=== PATIENT | female | born 1985 | race Caucasian/White ===

== ENCOUNTER 2019-10-26 08:55 | Emergency (ER) | payer OTHER, SELFPAY ==
[2019-10-26 09:05] VITALS: BP 110/68; PULSE 98; RESP 16; TEMP 36.4; O2SAT 97
--- NOTE | 2019-10-26 09:26 | ED.URI ---
HPI - URI/Sore Throat General Chief Complaint: Upper Respiratory Infection Stated Complaint: Sore Throat Time Seen by Provider: 10/26/19 09:26 Source: patient and RN notes reviewed Mode of arrival: ambulatory Limitations: no limitations History of Present Illness HPI Narrative: 34-year-old female presents with concern for sore throat, ear pain, nasal congestion, rhinorrhea, body aches, chills that started on . Reports she is been taking Tylenol Motrin with little relief. MD elicited complaint: sore throat Related Data Allergies Allergy/AdvReac Type Severity Reaction Status Date / Time loratadine Allergy Unknown Verified 01/24/18 18:53 Penicillins Allergy Unknown Verified 01/24/18 18:53 pseudoephedrine Allergy Unknown Verified 01/24/18 18:53 Cat Dander Allergy Unknown Uncoded 01/24/18 18:53 Review of Systems Review of Systems: Narrative: CONSTITUTIONAL: Reports malaise, chills, sweats. EYES: Denies visual changes, redness, or discharge. ENT: Reports rhinorrhea, congestion, otalgia and sore throat. Denies sinus pain CARDIOVASCULAR: Denies chest pain, palpitations, or edema. RESPIRATORY: Reports occasional cough. Denies dyspnea. GASTROINTESTINAL: Denies abdominal pain, nausea, vomiting, diarrhea SKIN: Denies rash or itching. MUSCULOSKELETAL: Reports myalgia. NEUROLOGIC: Reports headache. All systems reviewed & are unremarkable except as noted in HPI and below PMFSH Social History Social History Gender identity (if verbalized by the patient): Female Comments At time of signature, agree with nursing past medical, surgical, social and family history. There is no relevant family history pertinent to the presenting complaint Exam Narrative: Exam Narrative: GENERAL: Well-appearing, well-nourished, and in no acute distress. HEAD: Normocephalic EYES: PERRLA, conjunctivae clear ENT: Nares clear, turbinates edematous and erythematous, clear discharge. Mucous membranes moist. TM pearly gipson with dull light reflex bilaterally; no tragal tenderness. Oropharynx erythematous without lesions. Tonsils not enlarged and without exudate, no drooling, no hoarseness, no trismus. NECK: Supple. No lymphadenopathy CHEST: Clear to auscultation, breath sounds equal. No wheezing, rhonchi, rales, or stridor. No respiratory distress, speaks in full sentences. HEART: Regular rate and rhythm. No murmur heard. Normal peripheral pulses. SKIN: Warm, dry, no rash. NEURO: Alert and oriented x3. PSYCH: Normal mood and affect Course Course Emergency Course: Patient is aware of diagnosis, understands and agrees to treatment plan. Anticipatory guidance given. Patient agrees to follow-up as directed and is aware of reasons to seek care at the emergency department. Portions of this record may have been created with voice recognition software Vital Signs Vital signs: Vital Signs Temperature 97.5 F L 10/26/19 09:05 Pulse Rate 98 10/26/19 09:05 Respiratory Rate 16 10/26/19 09:05 Blood Pressure 110/68 10/26/19 09:05 Pulse Oximetry 97 10/26/19 09:05 Temperature 97.5 F L 10/26/19 09:05 Pulse Rate 98 10/26/19 09:05 Respiratory Rate 16 10/26/19 09:05 Blood Pressure 110/68 10/26/19 09:05 Pulse Oximetry 97 10/26/19 09:05 Reviewed. MDM - URI/Sore Throat MDM Narrative Medical decision making narrative: Differential diagnosis considered: Strep pharyngitis, allergic rhinitis, upper respiratory tract infection, sinusitis, rhinosinusitis, nasopharyngitis. viral pharyngitis, otitis media, otitis externa, pneumonia, bronchitis, viral cough syndrome, viral syndrome, and influenza. Exam findings show no acute concerns or changes; patient is non-toxic appearing and is in no distress. Patient is appropriate for outpatient treatment and follow-up. Lab Data Attestation: I reviewed the patient's lab results. Labs: Influenza A Screen Negative Reference Range: Negative Influenza B Screen Negative R
== END 2019-10-26 09:38 | disposition home or self-care (01) ==
PROVIDERS: Emergency Provider Nurse Practitioner
DX: J02.9 Acute pharyngitis, unspecified (principal); R09.81 Nasal congestion; J34.89 Other specified disorders of nose and nasal sinuses; R52 Pain, unspecified
CPT/HCPCS: 87081; 87804; 87880; 99213; G0463

== ENCOUNTER 2021-03-22 13:31 | Emergency (ER) | payer OTHER, SELFPAY ==
[2021-03-22 13:41] VITALS: BP 135/88; PULSE 102; RESP 20; TEMP 37.1
--- NOTE | 2021-03-22 14:55 | ED.URI ---
HPI - URI/Sore Throat General Chief Complaint: Upper Respiratory Infection Stated Complaint: Cough Source: patient and RN notes reviewed Mode of arrival: ambulatory History of Present Illness HPI Narrative: This is a 35-year-old female who presented to urgent care with complaints of uncontrolled nonproductive cough,fatigue, with shortness of breath. Patient did recently go to her primary care physician and was given a a Z-Angel. Patient noted that usually Z-Angel will resolve bronchitis. She did note that her bronchitis has not worsened it just has not resolved her symptoms. Patient also noted that she currently had a albuterol inhaler but no longer has 1 I will prescribe her a new 1 for her shortness of breath. the patient denies, CP, palpitation, extremity numbness, lightheadedness, dizziness, constipation, diarrhea, chills, or fever. I informed patient that if her symptoms did not resolve or improved she will need to go to get further testing to rule out things such as pneumonia. She has been vaccinated against Covid. Related Data Home Medications Medication Instructions Recorded Confirmed lisinopril-hydrochlorothiazide 1 tablet PO DAILY 10/26/19 03/22/21 Allergies Allergy/AdvReac Type Severity Reaction Status Date / Time loratadine Allergy Mild Hives Verified 03/22/21 14:30 Penicillins Allergy Mild Hives Verified 03/22/21 14:30 pseudoephedrine Allergy Mild Hives Verified 03/22/21 14:30 Cat Dander Allergy Mild Sneezing Uncoded 03/22/21 14:30 Review of Systems Review of Systems: Narrative: A 14 organ system Review of Systems was performed and pertinent positives included in the HPI, otherwise remaining ROS is negative. All systems reviewed & are unremarkable except as noted in HPI and below PMFSH Family History Family History (Updated 03/22/21 @ 15:03 by AMANDO Montano) Other Family history non-contributory Social History Social History Gender identity (if verbalized by the patient): Female Exam Narrative: Exam Narrative: GENERAL: This is a well-nourished, well-developed patient, in no apparent distress. HEAD: normocephalic, atraumatic. EYES: PERRL. Sclera clear/white. Vision is grossly intact. EARS: External ears normal, auditory canals clear and without drainage, TMs normal without perforation. Hearing grossly intact. NOSE: External nose normal with no obvious nasal discharge, nares without redness, no rhinorrhea. THROAT: Mucous membranes moist, posterior pharynx clear. NECK: Neck supple, non-tender without lymphadenopathy, masses or thyromegaly. CARDIOVASCULAR: Regular rate and rhythm without murmurs, gallops, or rubs. RESPIRATORY expiratory wheezing GASTROINTESTINAL: Abdomen soft, non-tender, nondistended. Bowel sounds are active. No hepato-splenomegaly, or palpable masses. No guarding. SKIN: warm, intact with no suspicious lesions or rash, good texture and turgor. NEURO: awake, alert, and oriented to person, place and time. There were no obvious focal neurologic abnormalities. Steady gait EXTREMITIES: Normal range of motion. No edema. No calf tenderness. Negative Homans sign bilaterally. BACK: Nontender without deformity or crepitance. No flank tenderness. Course Course Emergency Course: Patient will be given additional days of Z-Angel with prednisone albuterol and Tessalon Perles Vital Signs Vital signs: Vital Signs Temperature 98.7 F 03/22/21 13:41 Pulse Rate 102 H 03/22/21 13:41 Respiratory Rate 03/22/21 13:41 Blood Pressure 135/88 03/22/21 13:41 Temperature 98.7 F 03/22/21 13:41 Pulse Rate 102 H 03/22/21 13:41 Respiratory Rate 03/22/21 13:41 Blood Pressure 135/88 03/22/21 13:41 MDM - URI/Sore Throat Differential Diagnosis Differential diagnosis: Likely upper respiratory infection, bronchitis and pharyngitis Discharge Plan Discharge Clinical Impression: Bronchitis Patient Disposition: Home, Self-Care Condition: Stable Instructions: An
== END 2021-03-22 15:15 | disposition home or self-care (01) ==
PROVIDERS: Emergency Provider Nurse Practitioner; PCP Family Medicine
DX: J40 Bronchitis, not specified as acute or chronic (principal); I10 Essential (primary) hypertension
CPT/HCPCS: 99213; G0463

== ENCOUNTER 2021-05-31 08:16 | Outpatient (CLI) | payer OTHER, SELFPAY ==
--- NOTE | 2021-05-31 08:15 | ECG_ITS ---
Measurements Intervals [place] Rate: 97 P: 55 [place]: 123 QRS: 32 QRSD: 90 T: 28 QT: 354 QTc: 451 Interpretive Statements SINUS RHYTHM DELAYED PRECORDIAL R/S TRANSITION BASELINE ARTIFACT- I, III, AVL BORDERLINE ECG Electronically Signed On 05-31-2021 8:31:06 CDT by Melvin Pavon D.O.
[2021-05-31 09:29] LABS: Anion Gap 9 mmol/L (8-16); Blood Urea Nitrogen 14 mg/dL (7-17); Calcium 8.9 mg/dL (8.4-10.2); Carbon Dioxide 27 mmol/L (22-30); Chloride 103 mmol/L (98-107); Estimated Glomerular Filt Rate > 60; Glucose 122 mg/dL (65-110); Potassium 3.8 mmol/L (3.4-5.0); Sodium 139 mmol/L (137-145)
== END 2021-05-31 08:17 | disposition home or self-care (01) ==
LOC: ANHSURGERY 08:20
PROVIDERS: Anesthesiology; PCP Family Medicine; Visit Provider Obstetrics & Gynecology
DX: Z01.818 Encounter for other preprocedural examination (principal); Z51.81 Encounter for therapeutic drug level monitoring; Z79.899 Other long term (current) drug therapy; I10 Essential (primary) hypertension
CPT/HCPCS: 36415; 80048; 93005

== ENCOUNTER 2021-06-07 01:33 | Day surgery (SDC) | payer OTHER, SELFPAY ==
[2021-05-30 15:55] VITALS: BMI 43.2
--- NOTE | 2021-06-06 12:53 | P.PNAN_ITS ---
Anes - Initial Pre Proc Eval Procedure: Operation Date: 06/07/21 07:30 Proposed Procedures p Hysteroscopy with Biopsy of Endometrium, and Or Polypectomy and Laparoscopic Ovarian Cystectomy - Joseph Preciado MD Date/Time: 06/06/21 12:53 Surgeon: Joseph Preciado MD Pre Op Diagnosis: polyp of corpus uteri Patient Data Age: 35 Gender: F Height: 1.65 m Weight: 117.9 kg Allergies Allergy/AdvReac Type Severity Reaction Status Date / Time loratadine Allergy Mild Hives Verified 05/30/21 15:53 Penicillins Allergy Mild Hives Verified 05/30/21 15:53 pseudoephedrine Allergy Mild Hives Verified 05/30/21 15:53 Cat Dander Allergy Mild Sneezing Uncoded 05/30/21 15:53 Home Medications Medication Instructions Recorded Confirmed Type lisinopril-hydrochlorothiazide 1 tablet PO HS 10/26/19 05/30/21 History albuterol sulfate 2 inh INHALATION Q4-6H PRN #1 ea 03/22/21 05/30/21 Rx progesterone micronized 200 mg PO HS 05/30/21 05/30/21 History Patient hx anesthesia problems: none Family hx anesthesia problems: none Results Review: All pre-operative results and documents have been reviewed as part of the pre-operative evaluation. [facility] Past Medical History Medical History (Updated 06/06/21 @ 12:54 by Ferdinand Hernandez DO) Hypertension Family History Family History (Updated 03/22/21 @ 15:04 by GUNNAR Montano-C) Other Family history non-contributory Social History Social History Smoking packs per day: 0.5 Smoking cigarettes per day: 10.0 Years smoked: 13 Smoking pack-years: 6.50 Smoking status: Former smoker Tobacco type: cigarettes Smoking end date: 06/14/18 Alcohol intake: never Substance use: never Substance use type: does not use Living arrangements: with family Additional living arrangements comments: DAUGHTER Gender identity (if verbalized by the patient): Female Spiritual care concerns: No Anes - Eval Final PreProcedure Day of Procedure 06/06/21 12:53 Patient weight: morbidly obese Heart: regular rate and rhythm Lungs: clear to auscultation and normal air movement Airway: Mallampati scale class 1 Neurological: alert and oriented Last oral intake: >/= 8 hours ASA classification: III Emergent: no Anesthetic plan: proceed Anesthesia type and monitoring: general ETT and standard monitoring Results Review: All pre-operative results and documents have been reviewed as part of the pre-operative evaluation. Informed Consent: The patient's anesthetic plan and its attendant risks and benefits were discussed with the patient/family/POA. Questions were solicited and answers provided to the satisfaction of the patient/family/POA.
[2021-06-07] VITALS (13 sets, daily range): BP systolic 98–117; BP diastolic 58–75; PULSE 87–102; RESP 16–22; TEMP 36.3–36.8; O2SAT 92–99
[2021-06-07] MEDS: LACTATED RINGERS 1,000 ML 30 ML IV CONT ×2 (06:25→08:52)
[2021-06-07] MEDS: KETOROLAC 15 MG/ML VIAL (*BKC) IV PUSH (06:27)
[2021-06-07] MEDS: ACETAMINOPHEN 500 MG TABLET 1000 MG PO (06:27)
--- NOTE | 2021-06-07 07:14 | WPDHPUPDATE1 ---
History and Physical Update Update Date/Time: 06/07/21 07:14 History and Physical has been reviewed, including an updated exam of the patient. There are NO changes in the patient's condition. Risks, benefits, and alternatives have been discussed and questions answered. Patient agrees to proceed with procedure.
[2021-06-07] MEDS: fentaNYL CITRATE INJ (*CRX) 100 MCG/2 ML VIAL 25 MCG IV PUSH ×4 (09:01→09:34)
--- NOTE | 2021-06-07 09:09 | W.PM.PROC2 ---
Procedure Note - Detailed Date of Procedure 06/07/21 Pre-op Diagnosis polyp of corpus uteri, pelvic pain, ovarian cyst Post-op Diagnosis other (Pelvic pain, ovarian cyst, possible endometriosis) Procedure Performed Laparoscopic bilateral ovarian cystectomy with right salpingectomy, hysteroscopy D&C, Surgeon Joseph Preciado MD Anesthesia general Indications Pelvic pain Findings The right fallopian tube was stretched over a paratubal/ovarian cyst. It was deformed and damaged. A left ovarian hemorrhagic cyst was observed. The cysts on the right together measured about 7 cm. All appeared benign. The intrauterine cavity was normal. There may be endometriosis in the posterior cul-de-sac. Description of Procedure The patient was taken to the operating room. She was prepped and draped in the dorsal lithotomy position after induction general anesthesia. A 5 mm incision was made with a scalpel on the abdominal skin in the left upper quadrant of the abdomen. A 5 mm trocar was inserted into the intra-abdominal cavity under direct visualization the scope. In the same fashion a 5 mm left lower quadrant trocar was inserted and a 5 mm infraumbilical trocar was inserted. Bilateral ovarian cystectomy was performed. This was done with sharp and blunt dissection and using cautery. On the left side the cyst was removed from the parenchyma of the ovary. The right side was a pedunculated cyst off of the ovary that may be a paratubal cyst. It was closely associated with the fallopian tube and therefore the fallopian tube was removed. It was unsalvageable. It was stretched to family over the ovarian cyst. The right fallopian tube was removed. This was done with cautery and sharp dissection. It was removed from the infundibulopelvic ligament to the uterine cornua ovarian cysts and fallopian tube was taken out through the left lower quadrant trocar site. The pelvis was irrigated. The pneumoperitoneum was reduced. The trocars were removed. Skin was closed with subcuticular 4 micro. The patient's incisions were covered with Dermabond. A speculum was placed in the vagina. Cervix grasped with a tenaculum. The hysteroscope was inserted into the uterine cavity. Normal intrauterine cavity was observed. A medium curette was then used to curettage all the surfaces of the intrauterine cavity. These curettings were collected and sent to the pathology department. The procedure was terminated. She was taken recovery room in stable condition. Sponge lap and needle counts were correct x2. Estimated Blood Loss 25 Pathology yes Complications No immediate complications Condition stable Disposition same day
[2021-06-07] MEDS: oxyCODONE HCL (*CRX) 5 MG TAB IR PO (10:34)
[2021-06-07] MEDS: ALBUTEROL SULFATE NEB 2.5 MG/0.5 ML INH 5 MG INHALATION (11:00)
--- NOTE | 2021-06-07 11:09 | SUR.PHASEII ---
RESPIRATORY THERAPIST HERE FOR ALBUTEROL TREATMENT.
== END 2021-06-07 11:29 | disposition home or self-care (01) ==
PROVIDERS: PCP Family Medicine; Visit Provider Obstetrics & Gynecology
PROC: 0UDB8ZZ Extraction of Endometrium, Via Natural or Artificial Opening Endoscopic (ICD-10-PCS; CPT 58558; principal; 2021-06-07 07:30)
DX: N84.0 Polyp of corpus uteri (principal); N83.202 Unspecified ovarian cyst, left side; D27.0 Benign neoplasm of right ovary; N90.89 Other specified noninflammatory disorders of vulva and perineum; N73.6 Female pelvic peritoneal adhesions (postinfective); I10 Essential (primary) hypertension; Z79.51 Long term (current) use of inhaled steroids; Z87.891 Personal history of nicotine dependence; E66.01 Morbid (severe) obesity due to excess calories; Z68.41 Body mass index [BMI] 40.0-44.9, adult
CPT/HCPCS: 58661; 58558; 11200; 88302; 88305; 94640; A9270; J1885; J2250; J3010; J7030; J7120

== ENCOUNTER 2022-10-23 18:00 | Emergency (ER) | payer OTHER, SELFPAY ==
--- NOTE | ~2022-10-23 | XR_ITS ---
EXAMINATION: XR chest 2V DATE: 10/23/2022 18:44 INDICATION: Nonproductive cough. Chest tightness. TECHNIQUE: Frontal and lateral views of the chest were obtained. COMPARISON: Chest 2 views 01/24/2018 FINDINGS: A calcified right lung nodule and calcified right hilar lymph nodes are consistent with old granulomatous disease. No pleural effusion or pneumothorax. The heart size is normal. IMPRESSION: 1. No acute cardiopulmonary disease. Reviewed, dictated and finalized at location A. 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
[2022-10-23 18:25] VITALS: BP 114/70; PULSE 83; RESP 18; TEMP 36.6; O2SAT 99
--- NOTE | 2022-10-23 18:37 | ED.URI ---
HPI - URI/Sore Throat General Chief Complaint: Upper Respiratory Infection Stated Complaint: wheezing,cough Time Seen by Provider: 10/23/22 18:37 Source: patient and RN notes reviewed Mode of arrival: ambulatory Limitations: no limitations History of Present Illness HPI Narrative: 37 y/o female presented for c/o cough with associated chest tightness for 3 weeks. States she cannot take deep breaths or speak for any length of time without coughing. Cough is nonproductive. Symptoms worse at night. Denies recent illness, sob, wheezing, n/v/d/f/c. States she had similar sx as a child but has not required an inhaler for many years. Taking Mucinex occasionally for symptoms. MD elicited complaint: cough Related Data Home Medications Medication Instructions Recorded Confirmed lisinopril 20 1 tablet PO HS 10/26/19 10/23/22 mg-hydrochlorothiazide 25 mg tablet progesterone micronized 200 mg 200 mg PO HS 05/30/21 10/23/22 capsule Allergies Allergy/AdvReac Type Severity Reaction Status Date / Time loratadine AdvReac Mild Hives Verified 10/23/22 18:20 Penicillins AdvReac Mild Hives Verified 10/23/22 18:20 pseudoephedrine AdvReac Mild Hives Verified 10/23/22 18:20 Cat Dander AdvReac Mild Sneezing Uncoded 10/23/22 18:20 Review of Systems Review of Systems: CONSTITUTIONAL: Denies malaise, chills, sweats, fever EYES: Denies visual changes, redness, or discharge ENT: denies rhinorrhea, congestion, sinus pain, otalgia, sore throat CARDIOVASCULAR: Denies chest pain, palpitations, edema RESPIRATORY: Reports cough Denies dyspnea GASTROINTESTINAL: Denies abdominal pain, nausea, vomiting, diarrhea SKIN: Denies rash or itching MUSCULOSKELETAL: Denies myalgia NEUROLOGIC: Denies headache PMFSH Past Medical History Medical History Hypertension Family History Family History Other Family history non-contributory Social History Social History Smoking packs per day: 0.5 Smoking cigarettes per day: 10.0 Years smoked: 13 Smoking pack-years: 6.50 Smoking status: Former smoker Tobacco type: cigarettes Smoking end date: 06/14/18 Alcohol intake: never Substance use: never Substance use type: does not use Living arrangements: with family Additional living arrangements comments: DAUGHTER Gender identity (if verbalized by the patient): Female Spiritual care concerns: No Exam Narrative: GENERAL: mildly Ill-appearing, nontoxic EYES: PERRLA, conjunctivae clear ENT: Mucous membranes moist. TM pearly gipson with dull light reflex bilaterally; no tragal tenderness. Oropharynx normal; No tripod positioning, muffled voice, soft palate or pharyngeal wall bulging NECK: Supple. No lymphadenopathy CHEST: Clear to auscultation, breath sounds equal. No wheezing, rhonchi, rales, or stridor. Speaking and deep inspiration causes tight cough. No respiratory distress HEART: Regular rate and rhythm. No murmur heard. SKIN: Warm, dry, no rash. NEURO: Alert and oriented x3. PSYCH: Normal mood and affect Course Course Emergency Course: Patient is aware of diagnosis, understands and agrees to treatment plan. Anticipatory guidance given. Patient agrees to follow-up as directed and is aware of reasons to seek care at the emergency department. Portions of this record may have been created with voice recognition software Level of Care: Express Care Visit Vital Signs Vital signs: Vital Signs Temperature 97.8 F 10/23/22 18:25 Pulse Rate 83 10/23/22 18:25 Respiratory Rate 18 10/23/22 18:25 Blood Pressure 114/70 10/23/22 18:25 Pulse Oximetry 99 10/23/22 18:25 Oxygen Delivery Room Air 10/23/22 18:25 Temperature 97.8 F 10/23/22 18:25 Pulse Rate 83 10/23/22 18:25 Respiratory Rate 18 10/23/22 18:25 Blood Pressure 114/70 02/
== END 2022-10-23 19:01 | disposition home or self-care (01) ==
PROVIDERS: Emergency Provider Nurse Practitioner Family; PCP Family Medicine
DX: J40 Bronchitis, not specified as acute or chronic (principal); I10 Essential (primary) hypertension; Z87.891 Personal history of nicotine dependence
CPT/HCPCS: 71046; 99213; G0463

== ENCOUNTER 2022-12-12 08:33 | Emergency (ER) | payer OTHER, SELFPAY ==
[2022-12-12 08:44] VITALS: BP 102/56; PULSE 91; RESP 18; TEMP 36.6; O2SAT 97
--- NOTE | 2022-12-12 09:00 | ED.URI ---
HPI - URI/Sore Throat General Chief Complaint: Upper Respiratory Infection Stated Complaint: cough,sorthroat,congetion Time Seen by Provider: 12/12/22 09:00 Source: patient Mode of arrival: ambulatory Limitations: no limitations History of Present Illness HPI Narrative: 37-year-old female presents with complaint of cough, chest tightness, intermittent wheezing for the past 2 days. Reports that symptoms started after barbecue Grilling on Easter. patient reports that she has been having asthma like symptoms when she gets sick for the past several months. Thinks they are related to when she had COVID in 2019. Patient reports that she had asthma as a child but no problems since then. Has been using albuterol inhaler the last 2 days with little relief Of chest tightness. Has a tight , dry cough. afebrile. Speaking in full sentences. Ambulatory with steady gait. All systems reviewed and negative except as noted above. Related Data Home Medications Medication Instructions Recorded Confirmed lisinopril 20 1 tablet PO HS 10/26/19 12/12/22 mg-hydrochlorothiazide 25 mg tablet progesterone micronized 200 mg 200 mg PO HS 05/30/21 12/12/22 capsule Allergies Allergy/AdvReac Type Severity Reaction Status Date / Time loratadine AdvReac Mild Hives Verified 10/23/22 18:20 Penicillins AdvReac Mild Hives Verified 10/23/22 18:20 pseudoephedrine AdvReac Mild Hives Verified 10/23/22 18:20 Cat Dander AdvReac Mild Sneezing Uncoded 10/23/22 18:20 Review of Systems Review of Systems: CONSTITUTIONAL: Denies fever, chills, or sweats. EYES: Denies visual changes, redness, or discharge. ENT: Denies rhinorrhea, congestion, sore throat, or otalgia. CARDIOVASCULAR: Denies chest pain, palpitations, or edema. RESPIRATORY: Denies cough , chest tightness. Denies dyspnea. GASTROINTESTINAL: Denies abdominal pain, nausea, vomiting, or diarrhea. GENITOURINARY: Denies dysuria or hematuria. SKIN: Denies rash or itching. MUSCULOSKELETAL: Denies back pain, joint pain, or myalgia. NEUROLOGIC: Denies headache, numbness, or weakness. PSYCHIATRIC: Denies anxiety or depression. All other systems reviewed are negative, except as documented in HPI. [facility] Past Medical History Medical History Hypertension Family History Family History Other Family history non-contributory Social History Social History Smoking packs per day: 0.5 Smoking cigarettes per day: 10.0 Years smoked: 13 Smoking pack-years: 6.50 Smoking status: Former smoker Tobacco type: cigarettes Smoking end date: 06/14/18 Alcohol intake: never Substance use: never Substance use type: does not use Living arrangements: with family Additional living arrangements comments: DAUGHTER Gender identity (if verbalized by the patient): Female Spiritual care concerns: No Comments At time of signature, agree with nursing past medical, surgical, social and family history. There is no relevant family history pertinent to the presenting complaint. Exam Narrative: GENERAL: This is a well-nourished, well-developed patient, in no apparent distress. HEAD: normocephalic, atraumatic. EYES: PERRL. Sclera clear/white. Vision is grossly intact. EARS: External ears normal NOSE: External nose normal NECK: Neck supple, non-tender without lymphadenopathy, masses or thyromegaly. CARDIOVASCULAR: Regular rate and rhythm without murmurs, gallops, or rubs. RESPIRATORY: mildly decreased throughout all lung lara. No wheezes, rales, rhonchi. SKIN: warm, Dry, intact with no suspicious lesions or rash, good texture and turgor. NEURO: awake, alert, and oriented to person, place and time. There were no obvious focal neurologic abnormalities. EXTREMITIES: No joint tenderness, effusion, or edema noted. Course
[2022-12-12 09:21] VITALS: PULSE 96; RESP 22; O2SAT 95
[2022-12-12] MEDS: ALBUTEROL SULFATE NEB 2.5 MG/3 ML INH INHALATION (09:21)
[2022-12-12 09:35] VITALS: PULSE 95; RESP 20; O2SAT 98
== END 2022-12-12 09:45 | disposition home or self-care (01) ==
PROVIDERS: Emergency Provider Nurse Practitioner Family; PCP Family Medicine
DX: R05.9 Cough, unspecified (principal); F17.210 Nicotine dependence, cigarettes, uncomplicated; I10 Essential (primary) hypertension; Z86.16 Personal history of COVID-19
CPT/HCPCS: 99213; G0463

== ENCOUNTER 2022-12-19 16:57 | Emergency (ER) | payer OTHER, SELFPAY ==
--- NOTE | ~2022-12-19 | XR_ITS ---
EXAMINATION: XR chest 2V 12/19/2022 17:28 INDICATION: Nonproductive cough PROCEDURE: 2 view chest COMPARISON: Comparison to multiple prior studies sequentially, with oldest reviewed study dated 01/24. FINDINGS: The lungs are clear. The cardiomediastinal silhouette is within normal limits. There are no pleural effusions. There is no pneumothorax suspected. There is a calcified granuloma in the rig ht lung base. IMPRESSION: 1: NO ACUTE CARDIOPULMONARY DISEASE. Reviewed, dictated and finalized at location A.
[2022-12-19 17:07] VITALS: BP 117/69; PULSE 98; RESP 18; TEMP 36.7; O2SAT 98
--- NOTE | 2022-12-19 17:11 | ED.URI ---
HPI - URI/Sore Throat General Chief Complaint: Shortness of Breath/Dyspnea Stated Complaint: sob Time Seen by Provider: 12/19/22 17:11 Source: patient Mode of arrival: ambulatory Limitations: no limitations History of Present Illness HPI Narrative: 37-year-old female presents with complaint of shortness of breath, chest tightness, wheezing, coughing for the past several days. Patient was seen recently with the same complaints after using a BBQ grill. Took antibiotics, steroids, albuterol inhaler and felt better for a few days. States symptoms came back and now worse. Patient cannot speak a full sentence without coughing. Afebrile. States that she has been unable to get in with her primary care physician. Reports that she had asthma as a child but did not have issues with her breathing until after having COVID September 2021. All systems reviewed and negative except as noted above. Related Data Home Medications Medication Instructions Recorded Confirmed lisinopril 20 1 tablet PO HS 10/26/19 12/19/22 mg-hydrochlorothiazide 25 mg tablet progesterone micronized 200 mg 200 mg PO HS 05/30/21 12/19/22 capsule Allergies Allergy/AdvReac Type Severity Reaction Status Date / Time loratadine AdvReac Mild Hives Verified 12/19/22 17:12 Penicillins AdvReac Mild Hives Verified 12/19/22 17:12 pseudoephedrine AdvReac Mild Hives Verified 12/19/22 17:12 Cat Dander AdvReac Mild Sneezing Uncoded 12/19/22 17:12 Review of Systems Review of Systems: CONSTITUTIONAL: Denies fever, chills, or sweats. EYES: Denies visual changes, redness, or discharge. ENT: Denies rhinorrhea, congestion, sore throat, or otalgia. CARDIOVASCULAR: Denies chest pain, palpitations, or edema. RESPIRATORY: Reports cough and dyspnea. GASTROINTESTINAL: Denies abdominal pain, nausea, vomiting, or diarrhea. GENITOURINARY: Denies dysuria or hematuria. SKIN: Denies rash or itching. MUSCULOSKELETAL: Denies back pain, joint pain, or myalgia. NEUROLOGIC: Denies headache, numbness, or weakness. PSYCHIATRIC: Denies anxiety or depression. All other systems reviewed are negative, except as documented in HPI. [facility] Past Medical History Medical History Hypertension Family History Family History Other Family history non-contributory Social History Social History Smoking packs per day: 0.5 Smoking cigarettes per day: 10.0 Years smoked: 13 Smoking pack-years: 6.50 Smoking status: Former smoker Tobacco type: cigarettes Smoking end date: 06/14/18 Alcohol intake: never Substance use: never Substance use type: does not use Living arrangements: with family Additional living arrangements comments: DAUGHTER Gender identity (if verbalized by the patient): Female Spiritual care concerns: No Comments At time of signature, agree with nursing past medical, surgical, social and family history. There is no relevant family history pertinent to the presenting complaint. Exam Narrative: GENERAL: This is a well-nourished, well-developed patient, in no apparent distress. HEAD: normocephalic, atraumatic. EYES: PERRL. Sclera clear/white. Vision is grossly intact. EARS: External ears normal, auditory canals clear and without drainage, TMs normal without perforation. Hearing grossly intact. NOSE: External nose normal with no obvious nasal discharge, nares without redness, no rhinorrhea. THROAT: Mucous membranes moist, posterior pharynx clear. NECK: Neck supple, non-tender without lymphadenopathy, masses or thyromegaly. CARDIOVASCULAR: Regular rate and rhythm without murmurs, gallops, or rubs. RESPIRATORY: mild wheezing on expiration to upper lung lara, otherwise decreased. No wheezes, rales, or rhonchi. SKIN: warm, Dry, intact with no suspicious lesions or rash, good texture and tu
[2022-12-19] MEDS: IPRATROPIUM BR 0.02% INH SOLN 0.5 MG/2.5 ML VIAL INHALATION (17:40)
[2022-12-19] MEDS: ALBUTEROL SULFATE NEB 2.5 MG/3 ML INH INHALATION (17:41)
[2022-12-19] MEDS: predniSONE 20 MG TABLET 40 MG PO (17:46)
== END 2022-12-19 18:30 | disposition home or self-care (01) ==
PROVIDERS: Emergency Provider Nurse Practitioner Family; PCP Family Medicine
DX: J45.901 Unspecified asthma with (acute) exacerbation (principal); Z87.891 Personal history of nicotine dependence; I10 Essential (primary) hypertension; Z86.16 Personal history of COVID-19
CPT/HCPCS: 71046; 99213; A9270; G0463; J7512

== ENCOUNTER 2023-06-23 12:06 | Emergency (ER) | payer OTHER, SELFPAY ==
[2023-06-23 12:18] VITALS: BP 112/68; PULSE 87; RESP 16; TEMP 36.5; O2SAT 98
--- NOTE | 2023-06-23 12:39 | ED.URI ---
HPI - URI/Sore Throat General Chief Complaint: Upper Respiratory Infection Stated Complaint: Uncomfortable Feeling in Chest Area Time Seen by Provider: 06/23/23 12:39 Source: patient Mode of arrival: ambulatory Limitations: no limitations History of Present Illness HPI Narrative: 38-year-old female presented for complaint of palpitations, onset yesterday. States she feels a frequent ?flip-flop sensation? with warmth in the chest and throat. She did not feel the palpitations throughout the night while sleeping. Denies chest pain, shortness of breath, dizziness, nausea, vomiting, lethargy, or diaphoresis. Denies new medications or recent illness. Endorses family history of cardiac disease. Related Data Home Medications Medication Instructions Recorded Confirmed lisinopril 20 1 tablet PO HS 10/26/19 06/23/23 mg-hydrochlorothiazide 25 mg tablet progesterone micronized 200 mg 200 mg PO HS 05/30/21 06/23/23 capsule Allergies Allergy/AdvReac Type Severity Reaction Status Date / Time loratadine AdvReac Mild Hives Verified 06/23/23 12:12 Penicillins AdvReac Mild Hives Verified 06/23/23 12:12 pseudoephedrine AdvReac Mild Hives Verified 06/23/23 12:12 Cat Dander AdvReac Mild Sneezing Uncoded 06/23/23 12:12 Review of Systems Review of Systems: CONSTITUTIONAL: Denies body aches, fever, chills, or sweats. EYES: Denies visual changes ENT: Denies rhinorrhea, congestion, sore throat, or otalgia. CARDIOVASCULAR: Reports palpitations denies chest pain or edema. RESPIRATORY: Denies cough or dyspnea. GASTROINTESTINAL: Denies abdominal pain, nausea, vomiting, or diarrhea. SKIN: Denies rash, itching, or wounds. MUSCULOSKELETAL: Denies back pain, joint pain, or myalgia. NEUROLOGIC: Denies headache, numbness, tingling, or weakness. PSYCH: Denies depression or anxiety. All systems reviewed & are unremarkable except as noted in HPI and below PMFSH Past Medical History Medical History Hypertension Family History Family History Other Family history non-contributory Social History Social History Smoking packs per day: 0.5 Smoking cigarettes per day: 10.0 Years smoked: 13 Smoking pack-years: 6.50 Smoking status: Former smoker Tobacco type: cigarettes Smoking end date: 06/14/18 Alcohol intake: never Substance use: never Substance use type: does not use Living arrangements: with family Additional living arrangements comments: DAUGHTER Gender identity (if verbalized by the patient): Female Spiritual care concerns: No Comments At time of signature, I have reviewed and agree with nursing past medical, surgical, social and family history unless otherwise noted. Please see nursing chart for further information. There is no relevant family history pertinent to the presenting complaint Exam Narrative: GENERAL: Well-appearing, and in no acute distress. HEAD: Normocephalic, atraumatic. EYES: EOMI. conjunctivae normal. ENT: Mucous membranes pink and moist. No rhinorrhea. CHEST: No respiratory distress. Clear to auscultation. HEART: Regular rate and rhythm, occasional irregular beat. No murmur appreciated. Normal peripheral pulses. ABDOMEN: Soft, nontender, nondistended, normal active bowel sounds. EXTREMITIES: Normal range of motion. No edema. SKIN: Warm, dry, no rash. Capillary refill normal. Normal skin turgor. NEURO: No focal deficits. Alert and oriented x3. Gait steady. Course Course Emergency Course: Patient is aware of diagnosis, understands and agrees to treatment plan. Anticipatory guidance given. Patient agrees to follow-up as directed and is aware of reasons to seek care at the emergency department. Portions of this record may have been created with voice recognition software Level of Care: Express Care
== END 2023-06-23 13:06 | disposition short-term general hospital (02) ==
LOC: EXPTROY 12:08
PROVIDERS: Emergency Provider Nurse Practitioner Family; PCP Family Medicine
DX: R00.2 Palpitations (principal); Z87.891 Personal history of nicotine dependence; I10 Essential (primary) hypertension
CPT/HCPCS: 93005; 99213; G0463

== ENCOUNTER 2023-06-23 13:20 | Emergency (ER) | payer OTHER, SELFPAY ==
--- NOTE | 2023-06-23 13:25 | ECG_ITS ---
Rate AL QRSd QT QTc P QRS T Severity 87 122 84 354 428 56 19 28 Borderline ECG SINUS RHYTHM LOW QRS VOLTAGE BORDERLINE ECG COMPARED TO ECG 05/31/2021 08:32:17 NO SIGNIFICANT CHANGES Electronically Signed On 06-24-2023 8:18:42 CDT by Cash Dumont M.D. [facility]
[2023-06-23 13:32] VITALS: BP 113/81; PULSE 86; RESP 12; TEMP 36.9; O2SAT 97
[2023-06-23 14:17] VITALS: BP 112/71; PULSE 88; RESP 20; O2SAT 98
[2023-06-23 14:18] LABS: Basophils Percent Auto 0.3 % (0.2-1.2); Eosinophils Absolute Auto 0.2 K/mm3 (0-0.3); Eosinophils Percent Auto 1.7 % (0-4.4); Hematocrit 41.2 % (37.0-47.0); Hemoglobin 13.3 g/dL (12.0-15.0); Immature Granulocyte Absolute 0.03 K/mm3 (0.00-0.031); Immature Granulocyte Percent A 0.3 % (0-0.5); Lymphocytes Percent Auto 24.6 % (18.3-44.2); Mean Corpuscular HGB Conc 32.3 g/dl (32-36); Mean Corpuscular Hemoglobin 28.1 pg (26-34); Mean Corpuscular Volume 86.9 fl (80-100); Mean Platelet Volume 9.4 fl (7.4-10.4); Monocytes Absolute Auto 0.7 K/mm3 (0.1-0.6); Monocytes Percent Auto 6.4 % (2.6-8.5); Neutrophils Absolute Auto 6.8 K/mm3 (1.3-6.7); Neutrophils Percent Auto 66.7 % (45.5-73.1); Platelet Count Result 306 k/mm3 (150-375); Red Blood Count 4.74 M/mm3 (4.2-5.4); Red Cell Distribution Width 13.3 % (11.5-14.5); White Blood Count 10.2 K/mm3 (4.5-10.0)
[2023-06-23 14:28] LABS: Anion Gap 4 mmol/L (8-16); Blood Urea Nitrogen 17 mg/dL (7-17); Carbon Dioxide 30 mmol/L (22-30); Chloride 102 mmol/L (98-107); Estimated CRCL calculation 89 ml/min; Estimated Glomerular Filt Rate > 60; Glucose 93 mg/dL (65-110); Magnesium 1.7 mg/dL (1.6-2.3); Potassium 3.6 mmol/L (3.4-5.0); Sodium 136 mmol/L (137-145)
[2023-06-23 14:40] LABS: Troponin I < 0.012 ng/mL (0.000-0.034)
--- NOTE | 2023-06-23 14:43 | ED.ARRPALP ---
HPI - Arrhythmia/Palpitations General Chief Complaint: Arrhythmia/Palpitations Stated Complaint: ekg changes Time Seen by Provider: 06/23/23 13:36 Source: patient Mode of arrival: ambulatory Limitations: no limitations History of Present Illness HPI narrative: This is a 38 year old female that presents to the ER for palpitations. Reports ongoing since yesterday. She was seen at Urgent care and sent here for further evaluation. Reports she feels like her heart is flip flopping. Denies chest pain, shortness of breath or lower extremity edema. Related Data Home Medications Medication Instructions Recorded Confirmed lisinopril 20 1 tablet PO HS 10/26/19 06/23/23 mg-hydrochlorothiazide 25 mg tablet progesterone micronized 200 mg 200 mg PO HS 05/30/21 06/23/23 capsule Allergies Allergy/AdvReac Type Severity Reaction Status Date / Time loratadine AdvReac Mild Hives Verified 06/23/23 13:37 Penicillins AdvReac Mild Hives Verified 06/23/23 13:37 pseudoephedrine AdvReac Mild Hives Verified 06/23/23 13:37 Cat Dander AdvReac Mild Sneezing Uncoded 06/23/23 13:37 Review of Systems Review of Systems: CONSTITUTIONAL: Denies fever CARDIOVASCULAR: Reports palpitations. Denies chest pain, or edema. RESPIRATORY: Denies dyspnea. All systems reviewed & are unremarkable except as noted in HPI and below PMFSH Past Medical History Medical History Hypertension Family History Family History Other Family history non-contributory Social History Social History Smoking packs per day: 0.5 Smoking cigarettes per day: 10.0 Years smoked: 13 Smoking pack-years: 6.50 Smoking status: Former smoker Tobacco type: cigarettes Smoking end date: 06/14/18 Alcohol intake: never Substance use: never Substance use type: does not use Living arrangements: with family Additional living arrangements comments: DAUGHTER Gender identity (if verbalized by the patient): Female Spiritual care concerns: No Exam Narrative: GENERAL: Well-appearing, well-nourished, and in no acute distress. HEAD: Normocephalic, atraumatic. EYES: EOMI. NECK: No JVD CHEST: Clear to auscultation. No respiratory distress. No wheezes rales or rhonchi HEART: Regular rate and rhythm. No murmur heard. Normal peripheral pulses. EXTREMITIES: Normal range of motion. No edema. SKIN: Warm, dry, no rash. NEURO: No focal deficits. Alert and oriented x3. PSYCH: Normal mood and affect Course Course Emergency Course: Patient was updated on workup and agrees with plan of care Vital Signs Vital signs: Vital Signs Temperature 98.4 F 06/23/23 13:32 Pulse Rate 86 06/23/23 13:32 Respiratory Rate 12 06/23/23 13:32 Blood Pressure 113/81 06/23/23 13:32 Pulse Oximetry 97 06/23/23 13:32 Oxygen Delivery Room Air 06/23/23 13:32 Temperature 98.4 F 06/23/23 13:32 Pulse Rate 88 06/23/23 14:17 Respiratory Rate 20 06/23/23 14:17 Blood Pressure 112/71 06/23/23 14:17 Pulse Oximetry 98 06/23/23 14:17 Oxygen Delivery Room Air 06/23/23 13:32 MDM - Arrhythmia/Palpitations MDM Narrative Medical decision making narrative: Patient presents to the emergency department for palpitations ongoing since yesterday. Her vitals are stable. She is in no acute distress. CBC and metabolic panel without concerning findings. Her baseline troponin is negative. No concerning findings on her EKG. It shows normal sinus rhythm. She does have occasional PVCs noted on [employer] attendant. Patient was updated on work-up. Instructed on things she can do to reduce the amount of PVCs. Instructed to have follow up with her PCP. She was given warnings to return to the ER Differential Diagnosis Differential diagnosis: Likely palpitations, anxiety, sinus tachycardia and ve
[2023-06-23 15:05] VITALS: BP 103/63; PULSE 87; RESP 16; O2SAT 98
--- NOTE | 2023-06-23 23:39 | ECG_ITS ---
Rate [place] QRSd QT QTc P QRS T Severity 75 184 159 449 503 96 268 61 Abnormal ECG SINUS RHYTHM MARKED RIGHT AXIS DEVIATION [QRS AXIS > 100] RIGHT BUNDLE BRANCH BLOCK [120+ ms QRS DURATION, UPRIGHT V1, 40+ ms S IN I/aVL/V4/V5/V6] ST DEPRESSION, CONSIDER GLOBAL ISCHEMIA ABNORMAL ECG Electronically Signed On 06-24-2023 8:28:19 CDT by Cash Dumont M.D. COMPARED TO ECG 06/23/2023 13:25:48 RIGHT BUNDLE-BRANCH BLOCK NOW PRESENT MTDD
== END 2023-06-23 15:08 | disposition home or self-care (01) ==
PROVIDERS: Emergency Provider Physician Assistant; PCP Family Medicine
DX: I49.3 Ventricular premature depolarization (principal); I10 Essential (primary) hypertension; Z87.891 Personal history of nicotine dependence; I45.10 Unspecified right bundle-branch block; R94.31 Abnormal electrocardiogram [ECG] [EKG]
CPT/HCPCS: 36415; 80048; 83735; 84484; 85025; 93005; 99284

== ENCOUNTER 2024-01-21 17:26 | Emergency (ER) | payer OTHER, SELFPAY ==
[2024-01-21 17:37] VITALS: BP 101/56; PULSE 88; RESP 24; TEMP 36.3; O2SAT 98
--- NOTE | 2024-01-21 17:53 | ED.URI ---
HPI - URI/Sore Throat General Chief Complaint: Upper Respiratory Infection Stated Complaint: respiratory infection Source: patient Mode of arrival: ambulatory Limitations: no limitations History of Present Illness HPI Narrative: 38-year-old female with a history of asthma presented for complaint of nonproductive cough and chest tightness over the past 3 days. Cough is worse at night, and endorses sob with exertion. She has been using her inhaler along with mucinex and Loyda for symptoms. She denies chest pain, palpitations, nausea, vomiting diarrhea fevers or chills. Scheduled with a new PCP. Related Data Home Medications Medication Instructions Recorded Confirmed lisinopril 20 1 tablet PO HS 10/26/19 06/23/23 mg-hydrochlorothiazide 25 mg tablet albuterol sulfate 90 mcg/actuation inhalation 01/21/24 aerosol inhaler fluticasone propionate 110 inhalation 01/21/24 mcg/actuation HFA aerosol inhaler levonorgestrel 21 mcg/24 hr (up to 1 device intrauterine ONCE 01/21/24 01/21/24 8 years) 52 mg intrauterine device (Mirena) Allergies Allergy/AdvReac Type Severity Reaction Status Date / Time loratadine Allergy Mild Hives Verified 01/21/24 17:51 pseudoephedrine Allergy Mild Hives Verified 01/21/24 17:51 Penicillins AdvReac Mild Hives Verified 01/21/24 17:51 Cat Dander AdvReac Mild Sneezing Uncoded 01/21/24 17:51 Review of Systems Review of Systems: CONSTITUTIONAL: Denies body aches, fever, chills, or sweats. EYES: Denies visual changes, redness, or discharge. ENT: Denies rhinorrhea, congestion, sore throat, or otalgia. CARDIOVASCULAR: Denies chest pain, palpitations, or edema. RESPIRATORY: Reports cough, sob, wheezing. GASTROINTESTINAL: Denies abdominal pain, nausea, vomiting, or diarrhea. SKIN: Denies rash, itching, or wounds. MUSCULOSKELETAL: Denies back pain, joint pain, or myalgia. NEUROLOGIC: Denies headache All systems reviewed & are unremarkable except as noted in HPI and below PMFSH Past Medical History Medical History Hypertension Family History Family History Other Family history non-contributory Social History Social History Smoking packs per day: 0.5 Smoking cigarettes per day: 10.0 Years smoked: 13 Smoking pack-years: 6.50 Smoking status: Former smoker Tobacco type: cigarettes Smoking end date: 06/14/18 Alcohol intake: never Substance use: never Substance use type: does not use Living arrangements: with family Additional living arrangements comments: DAUGHTER Gender identity (if verbalized by the patient): Female Spiritual care concerns: No Comments At time of signature, I have reviewed and agree with nursing past medical, surgical, social and family history unless otherwise noted. Please see nursing chart for further information. There is no relevant family history pertinent to the presenting complaint Exam Narrative: GENERAL: Well-appearing, in no acute distress. EYES: EOMI. No redness or drainage. Conjunctivae normal. ENT: Mucous membranes pink and moist. No rhinorrhea. TMs normal bilaterally. Throat normal. Uvula midline. NECK: Normal AROM. Supple. CHEST: No respiratory distress. lungs clear, slightly diminished to all lara. Speaks full sentences, but appears winded HEART: Regular rate and rhythm. No murmur appreciated. ABDOMEN: Soft, nontender, nondistended, normal active bowel sounds. EXTREMITIES: Normal range of motion. No edema. SKIN: Warm, dry, no rash. Capillary refill normal. Normal skin turgor. NEURO: Alert and oriented x3. Gait steady. PSYCH: Normal affect. Course Course Emergency Course: Patient is aware of diagnosis, understands and agrees to treatment plan. Anticipatory guidance given. Patient agrees to follow-up as directed and is aware of
== END 2024-01-21 18:08 | disposition home or self-care (01) ==
PROVIDERS: Emergency Provider Nurse Practitioner Family
DX: J40 Bronchitis, not specified as acute or chronic (principal); Z87.891 Personal history of nicotine dependence; I10 Essential (primary) hypertension
CPT/HCPCS: 99213; G0463

== ENCOUNTER 2025-03-13 15:06 | Outpatient (CLI) | payer OTHER, SELFPAY ==
--- NOTE | ~2025-03-13 | MM_ITS ---
EXAMINATION: MM screening emanuel BI w darin HISTORY: Screening TECHNIQUE: Craniocaudal and mediolateral oblique 3-D tomosynthesis images were obtained and synthetic 2-D images were generated. CAD analysis was submitted and interpreted. COMPARISON: No prior studies for comparison. BREAST PARENCHYMAL COMPOSITION: Not Dense: The breasts are almost entirely fatty. FINDINGS: There is no evidence of suspicious mass, calcification, or architectural distortion to sugg est malignancy in either breast. There has been no suspicious interval change. IMPRESSION: 1. No mammographic evidence of malignancy. 2. Recommend routine screening mammography in one year. BI-RADS Category 1: Negative Reviewed, dictated and finalized at location []
--- OUTSIDE RECORDS SUMMARY | 2025-03-13 15:12 | XMS_ITS | Clinical Summary ---
Author Organization [facility] Address [address] [place] [address] Care Team Providers Care Family Living Educator Name Role Phone Unavailable Primary Care Provider Unavailabl e Source Comments [facility],non-owned Affiliates and Associated Physician Practices is amultiple site organization consisting of ambulatory clinics and hospital sitesin [place], [place], [place] and [place]. This disclosure is being madepursuant to the Care Everywhere program and may not contain all information available regarding this patient. Last updated 18.[employer] [facility] Allergies No known active allergies Medications * Be aware that medications may not be up to date on this document. Alwaysverify current medications with the patient. No known medications Immunizations Immunization Administration Dates Next Due HEP B VACCINE, ADULT 3 DOSE 04/09/2017 Social History Tobacco Use Types Packs/Day Years Used Date Smoking Tobacco: Never Assessed Comments Unknown Sex and Gender Information Value Date Recorded Sex Assigned at Not on file Legal Sex Female 10:19 AM CDT Gender Identity Not on file Sexual Orientation Not on file Plan of Treatment Health Maintenance Due Date Last Done Comments LIPID TESTING 1983 MAMMOGRAM 1983 HIV SCREENING 1998 HEPATITIS C SCREENING 06/09/2001 DTAP/TDAP/TD VACCINES (1 - Tdap) 2002 HEPATITIS B VACCINE (2 of 3 - 19+ 3-dose series) 05/07/2017 04/09/2017 COVID-19 VACCINE (1 - 2023-2 5 season) 2024 DEPRESSION SCREENING 09/03/2024 INFLUENZA VACCINE (Season Ended) 2025 ZOSTER VACCINE (1 of 2) 2033 HIB VACCINE Aged Out No longer eligi ble based on patient's age to complete this topic HPV VACCINE Aged Out No longer eligi ble based on patient's age to complete this topic MENINGOCOCCAL (Group B) VACC INE SHARED DECISION-MAKING Aged Out No longer eligibl e based on patient's age to complete this topic MENINGOCOCCAL GROUPS A/C/Y/W VACCINE Aged Out No longer eligible b ased on patient's age to complete this topic PNEUMOCOCCAL VACCINE Aged Out No long er eligible based on patient's age to complete this topic [place] [address] [address]
--- OUTSIDE RECORDS SUMMARY | 2025-03-13 15:12 | XMS_ITS | Data Portability ---
Author Organization [place] - [facility] [employer], Main Office Address [address] [place] [address] Assessment Encounter Date Assessment Date Assessment LastModified by Organization Details LastModified Time 10/03/2023 10/03/2023 pain, edema, Rt akachigian Not available 10/03/2023 10:09:23 Plan of Treatment Reminders Order Date Submit Date Provider Last Modified By Organization Details Last Modified Time Details Appointments None recorded. Lab lipid panel, serum 2024 [address]25 [place] [id number] [facility] (Lab), [address] [place], [address], 5 16:49:05 CMP, serum or plasma [email or web address] [facility] (Lab), [address] [place], [address], 5 16:49:05 TSH, serum or plasma [email or web address] [facility] (Lab), [address] [place], [address], 5 16:49:05 CK (creatine kinase), total, serum [email or web address] [facility] (Lab), [address] [place], [address], 5 16:49:05 CBC w/ auto diff 2024 [email or web address] [place] [address] (Lab), [address] [place], [address], 5 16:49:06 vitamin D, 25-hydroxy, total, serum [email or web address] [facility] (Lab), [address] [place], [address], 5 16:49:05 glycohemogl obin, total, blood 2023 [address] [facility] [facility] (Lab), [address] [place], [address], 4 08:37:08 TSH, serum or plasma 2023 [address] [facility] [facility] (Lab), [address] [place], [address], 4 08:37:08 vitamin B12, serum 2023 [address] [facility] [facility] (Lab), [address] [place], [address], 4 08:37:08 vitamin D, 25-hydroxy, total, serum [email or web address] [facility] (Lab), [address] [place], [address], 4 08:37:09 lipid panel, serum [address] [facility] (Lab), [address] [place], [address], 4 19:51:18 CK (creatine kinase), total, serum [email or web address] [facility] (Lab), [address] [place], [address], 4 08:37:08 CMP, serum or plasma 2023 024 [facility] (Lab), [address] [place], [address], 4 19:51:18 CBC w/ auto diff [email or web address] [facility] (Lab), [address] [place], [address], 4 08:37:08 Referral None recorded. Procedures None recorded. Surgeries None recorded. Imaging MAMMO, screening, digital, bilateral 2023 024 [email or web address] [address], [address], [address], [place], [address], 4 09:49:28 Medication Orders fluticasone propionate 50 mcg/actuati on nasal spray,suspe nsion 2024 [facility]25 [facility] [address], [place], [id number], 5 13:21:02 albuterol sulfate HFA 90 mcg/actuati on aerosol inhaler 2024 025 [facility], [address], [place], [id number], 5 13:16:57 fluticasone propionate 110 mcg/actuati on HFA aerosol inhaler 2024 025 [facility], [address], [place], [id number], 5 13:16:58 prednisone 20 mg tablet 2024 025 [facility], [address], [place], [id number], 5 13:17:04 cholecalcif rosario (vitamin D3) 50 mcg (2,000 unit) capsule 2024 025 [facility] #38487, [address] [facility], [place], [place], [id number], 5 13:22:32 Patient TargetsNo targets recorded. Patient Instructions Encounter Date Encounter Id Patient Instructions Last Modified By Organization Details Last Modified Time 09/12/2023 [id number] to cont wearing boot as needed akachigian Not available 09/12/2023 11:08:43 Reason for Referral None Reported. Results Created Date Observation Date Name Description Value Unit Range Abnormal Flag Note LastModifiedBy Organization Detail LastModifiedTime Result Notes None recorded. Problems Name Problem SNOMED Code Status Onset Date Resolution Date Notes Provider Name and Address Organization Details Recorded Time Acute bronchitis 23714476 Active Not Available [facility] 3 02:56:13 Congenital pes cavus of right foot 0985704808495 9101 Active 2019 Not Available [facility] 3 02:56:13 Postoperat sotero visit 518717565 Active 2020 Not Available [facility] 3 02:56:13 Asthma 297583829 Active Not Available [facility] 3 02:56:14 Postoperat sotero pain 487403951 Active 2020 Not Available [facility] 3 02:56:14 Strain of tendon of foot and ankle 699734284 Active 2020 Not Available [facility] 3 02:56:14 Pain in right foot 7274599616657 07 Active 2019 Not Available [facility] 3 02:56:14 Hypertensi ve disorder 42067272 Active Not Available [facility] 3 02:56:14 Obesity 779202905 Active Not Available [facility] 3 02:56:14 Eczema 46928321 Active Not Available [facility] 3 02:56:14 Streptococ prince sore throat 50373498 Active Not Available [facility] 3 02:56:14 Anxiety 25977946 Active Not Available [facility] 3 02:56:14 Peroneal tendinitis 67505727 Active 2019 Not Available [facility] 3 02:56:14 Hyperlipid emia 10137758 Active Not Available [facility] 3 02:56:15 Essential hypertensi on 42550370 Active Not Available [facility] 3 02:56:15 Smoker 12250329 Active Not Available [facility] 3 02:56:15 Intermitte nt palpitatio ns 565524436 Active 2022 Easton Ramos MD [address], [address], [place], [address] , [employer] [facility] [employer] 3 09:15:53 Chronic bronchitis 41337109 Active 2022 Easton Ramos MD [address], [address], [place], [address] , [facility] [employer] [facility] [employer] 3 09:22:12 Plantar fasciitis 238278746 Active 2023 Bharath Olson DPM [address], [address], [place], [address] , [employer] [facility] [employer] [facility] 4 11:04:44 Leg length inequality 02686715 Active 2023 Bharath Olson DPM [address], [address], [place], [address] , [facility] [employer] [facility] [employer] [facility] 4 11:05:04 Plantar fasciitis of right foot 3209057167419 9101 Active 2023 PAIGE Valadez null, [place] [employer] [facility] [employer] [facility] 4 12:33:12 Screening for malignant neoplasm of breast Active 2023 EDWARD Alexis [address], [address], [place], [address] , [facility] [employer] [facility] [employer] [facility] 4 09:21:44 Adult health examinatio n Active 2023 EDWARD Alexis [address], [address], [place], [address] , [employer] 4 11:20:28 Vitamin D deficiency 64878758 Active 2023 EDWARD Alexis [address], [address], [place], [address] , [employer] 4 12:06:13 Allergic rhinitis 83970153 Active 2024 EDWARD Alexis [address], [address], [place], [address] , [facility] 5 13:18:47 Leukocytos is 753121188 Active 2024 EDWARD Alexis [address], [address], [place], [address] , [facility] 5 13:26:32 Problem Notes None recorded. Procedures Surgical History Date Name Laterality Status Provider Name and Address Organization Details Recorded Time 4 Trigger Point Injection completed Bharath Olson DPM [address], [address], [place], [address], [employer] 10/03/2023 10:09:11 1 procedure on fallopian tube completed Rachele Reed MA [employer] 07/11/2023 09:07:20 Foot Surgery completed Not Available [facility] 11/01/2022 02:46:50 Imaging Results None recorded. Procedure Notes None recorded. Medical Equipment None Reported. Allergies Allergen ID Allergen Name Allergen Category Reaction Reaction Severity Criticality Documentation Date Start Date Code Code System Note Provider Name and Address Organization Details Recorded Time 5530 Product containin g penicilli n (product) medicatio n rash moderate Not available 11/01/2022 91567 8001 SNOMED Not Available [facility] 3 03:14:07 5531 Claritin- D medicatio n rash moderate Not available 11/01/2022 18583 UNK Not Available [facility] 3 03:14:07 Medications Name Sig Start Date Stop Date Status Note LastModified by Organization Details LastModified Time Prescriptio n - Change active Not Available Not Available N ot Available cyclobenzap rine 10 mg tablet TK 1 T PO TID PRF MUSCLE SPASM 10/15 completed Not Available Not Available Not Available buspirone 5 mg tablet Take 1 tablet twice a day by oral route. 07/22 completed Not Available Not Available Not Available atorvastati n 20 mg tablet Take 1 tablet every day by oral route. active Not Available Not Available No t Available clindamycin HCl 300 mg capsule TK 1 C PO Q 6 H active Not Available Not Available No t Available azithromyci n 250 mg tablet Take 2 TABLET EVERY DAY by oral route for 1 day. Than 1 tablet for 4 days active Not Available Not Available No t Available tramadol 37.5 mg-acetamin ophen 325 mg tablet TK ONE TO TWO TS PO Q 4-6 H PRF PAIN active Not Available Not Available No t Available Lidocaine Viscous 2 % mucosal solution 02/02 completed Not Available Not Available Not Available benzonatate 200 mg capsule TAKE 1 CAPSULE BY MOUTH THREE TIMES DAILY NEEDED FOR COUGH 03/04 completed Not Available Not Available Not Available hydrocodone 5 mg-acetamin ophen 325 mg tablet TK 1 T PO Q 4 TO 6 H PRN active Not Available Not Available No t Available prednisone 20 mg tablet Take 2 tabs PO twice daily for 2 days; 1 tab PO twice daily for 5 days; 1/2 tab PO twice daily for 2 days; 1/2 tab PO once for 1 day. TAKE 2ND DOSE EVERYDAY AT NOON-10 DAY COURSE active Not Available Not Available No t Available phentermine 15 mg capsule Take 1 capsule every day by oral route. active Not Available Not Available No t Available clindamycin HCl 150 mg capsule 10/15 completed Not Available Not Available Not Available phentermine 37.5 mg tablet TAKE 1 TABLET BY MOUTH EVERY DAY 12/30 completed Not Available Not Available Not Available sulfamethox azole 800 mg-trimetho prim 160 mg tablet TAKE 1 TABLET BY MOUTH TWICE DAILY active Not Available Not Available No t Available phentermine 30 mg capsule Take 1 capsule every day by oral route. active Not Available Not Available No t Available meloxicam 7.5 mg tablet TAKE 1 TABLET BY MOUTH EVERY DAY NEEDED 02/02 completed Not Available Not Available Not Available oxycodone-a cetaminophe n 5 mg-325 mg tablet TAKE 1 TABLET BY MOUTH EVERY 8 HOURS NEEDED active Not Available Not Available No t Available lorazepam 0.5 mg tablet Take 1 tablet twice a day by oral route as needed. active Not Available Not Available No t Available ciprofloxac in 0.3 % eye drops active Not Available Not Available No t Available buspirone 10 mg tablet TK ONE-HALF T PO BID 02/02 completed Not Available Not Available Not Available progesteron e micronized 200 mg capsule TAKE 1 CAPSULE BY MOUTH EVERY DAY 03/04 completed Not Available Not Available Not Available lisinopril 20 mg-hydrochl orothiazide 25 mg tablet TAKE 1 TABLET BY MOUTH EVERY DAY active Not Available Not Available No t Available montelukast 10 mg tablet TAKE 1 TABLET BY MOUTH AT BEDTIME 03/04 completed Not Available Not Available Not Available codeine 10 mg-guaifene sin 100 mg/5 mL oral liquid TAKE 10 ML BY MOUTH EVERY 8 HOURS NEEDED FOR COUGH 03/04 completed Not Available Not Available Not Available hydrochloro thiazide 25 mg tablet Take 1 tablet every day by oral route. active Not Available Not Available No t Available ibuprofen 600 mg tablet TK 1 T PO Q 6 H PRN active Not Available Not Available No t Available methylpredn isolone 4 mg tablets in a dose pack FOLLOW PACKAGE DIRECTION S 03/04 completed Not Available Not Available Not Available albuterol sulfate HFA 90 mcg/actuati on aerosol inhaler INHALE 2 PUFFS BY MOUTH EVERY 4 HOURS active Not Available Not Available No t Available ondansetron 4 mg disintegrat ing tablet active Not Available Not Available N ot Available fluticasone propionate 50 mcg/actuati on nasal spray,suspe nsion SHAKE LIQUID AND USE 1 SPRAY IN EACH NOSTRIL EVERY DAY active Not Available Not Available No t Available phentermine 37.5 mg capsule TK 1 C PO ONCE D IN THE MORNING 11/28 completed Not Available Not Available Not Available loratadine 10 mg tablet TAKE 1 TABLET BY MOUTH DAILY 03/04 completed Not Available Not Available Not Available fluticasone propionate 110 mcg/actuati on HFA aerosol inhaler INHALE 1 PUFF BY MOUTH TWICE DAILY active Not Available Not Available No t Available naproxen 500 mg tablet TK 1 T PO D 10/15 completed Not Available Not Available Not Available progesteron e micronized 100 mg capsule Take 1 capsule every day by oral route for 10 days. 07/11 completed Not Available Not Available Not Available rosuvastati n 20 mg tablet TAKE 1 TABLET BY MOUTH EVERY DAY FOR HIGH CHOLESTER OL active Not Available Not Available No t Available fenofibrate 160 mg tablet TAKE 1 TABLET BY MOUTH EVERY DAY active Not Available Not Available No t Available diclofenac 1 % topical gel CARROLL 2 GRAMS EXT AA TID 02/02 completed Not Available Not Available Not Available cholecalcif rosario (vitamin D3) 50 mcg (2,000 unit) capsule TAKE 1 CAPSULE BY MOUTH DAILY WITH A MEAL active Not Available Not Available No t Available Qsymia 7.5 mg-46 mg capsule, extended release TK 1 C PO D active Not Available Not Available No t Available Aerochamber Plus Flow-Vu,Lar ge Mask USE DIRECTED active Not Available Not Available No t Available Fluzone Quad (PF) 60 mcg (15 mcg x 4)/0.5 mL IM syringe [facility] 02/02 completed Not Available Not Available Not Available Vitals Date Recorded Body height Body mass index (BMI) Body weight Body temperature Oxygen saturation Oxygen saturation in Arterial blood by Pulse oximetry Heart rate Provider Name and Address Organization Details Last Updated DateTime 4 162.56 cm 48.4 kg/m2 512117. 05 g 98.6 [degF] 96 % 96 % 90 /min PAIGE Valadez [facility] [employer] [facility] 4 10:36:55 Date Recorded Body height Body mass index (BMI) Body weight Oxygen saturation Oxygen saturation in Arterial blood by Pulse oximetry Body temperature Provider Name and Address Organization Details Last Updated DateTime 4 162.56 cm 48.4 kg/m2 938396. 05 g 97 % 97 % 98.6 [degF] PAIGE Valadez [facility] [employer] [facility] 4 09:25:17 Date Recorded Body height Body mass index (BMI) Body weight Body temperature Oxygen saturation Oxygen saturation in Arterial blood by Pulse oximetry Heart rate Systolic And Diastolic Provider Name and Address Organization Details Last Updated DateTime 5 162.56 cm 49.8 kg/m2 770452. 79 g 98.4 [degF] 95 % 95 % 87 /min 128/68 mm[Hg] PAIGE [place] [employer] [facility] [employer] 5 12:37:43 Date Recorded Body height Body mass index (BMI) Body weight Body temperature Heart rate Oxygen saturation Oxygen saturation in Arterial blood by Pulse oximetry Respiratory rate Systolic And Diastolic Provider Name and Address Organization Details Last Updated DateTime 4 162.56 cm 48.6 kg/m2 830602. 64 g 98.5 [degF] 89 /min 96 % 96 % 16 /min 108/80 mm[Hg] Sierra Espinal RN [facility] [employer] 4 09:11:07 Social History Question Answer Notes LastModified by 2,10E+07 Details LastModified Time Tobacco Smoking Status Former Smoker Not Available [facility] 11/01/2022 02:35:32 In The 14 Days Before Symptom Onset, Have You Had Close Contact With A Laboratory-confirm ed COVID-19 While That Case Was Ill? No [id number] Information not available 11/01/2022 In The 14 Days Before Symptom Onset, Have You Had Close Contact With A Person Who Is Under Investigation For COVID-19 While That Person Was Ill? No [id number] Information not available 11/01/2022 What Was The Date Of Your Most Recent Tobacco Screening? 09/12/2023 Information not available 09/12/2023 How Much Tobacco Do You Smoke? 0.5 PPD [id number] Information not available 11/01/2022 How Many Years Have You Smoked Tobacco? 13 [id number] Information not available 11/01/2022 Sex: Unknown Functional Status Question Answer Note LastModified by [employer] Details LastModified Time What is your level of alcohol consumption? None [id number] Information not available 11/01/2022 Mental Status None recorded. Family History Relationship Description Onset Age of this Age Resolved Age Notes LastModified by Organization Details LastModified Time Mother Malignant neoplasm of ovary [id number] Not available 11/01/2022 02:46:53 Sister Staphylococc al infectious disease [id number] Not available 11/01/2022 02:46:53 Medical History Condition Response ALLERGIES/HAYFEVER Y HEADACHES/MIGRAINES Y HYPERTENSION Y ASTHMA Y Gynecological HistoryNo gynecological history recorded. Obstetrics History GPAL:G 0 P 0 0 0 0 Past Encounters Encounter ID Performer Location Encounter Start Date Encounter Closed Date Diagnosis/Indication Diagnosis SNOMED-CT Code Diagnosis ICD10 Code Diagnosis Note [id number] [facility] Tamez [address] [place] [address] 11/11/2020 00:00:00 11/14/2020 16:17:38 [id number] Easton Ramos MD [facility] [place] [address] 02/02/2021 00:00:00 02/02/2021 21:18:01 [id number] Easton Ramos MD [address] [place] [address] 07/11/2023 08:57:42 07/11/2023 09:29:11 Intermittent palpitations 643650380 R00.2 Chronic bronchitis 17390 004 J42 Obesity 505550406 E66.9 Continue weight loss efforts. F/u in 1 month. [id number] Bharath Olson DPM [facility] [place] [address] [address] 08/31/2023 11:02:26 11/30/2023 12:10:22 [id number] Bharath Olson DPM [facility] [place] [address] [address] 09/12/2023 10:29:45 04/03/2024 11:13:30 Plantar fasciitis 460499521 M72.2 Leg length inequality 45 201154 M21.70 Pain in right foot 80364 10561 74210 M79.671 injected rt leg standard trigger x 3 [id number] Bharath Olson DPM [facility] [place] [address] [address] [facility] [address] [place] [address] 10/03/2023 09:17:23 10/03/2023 11:53:46 [id number] Vicente Sen MD [facility] [address] [place] [address] 03/04/2024 08:59:00 03/04/2024 09:32:13 Essential hypertension 38174674 I10 Hyperlipidemia 71389191 E78.5 Obesity 399721796 E66.9 Screening for malignant neoplasm of breast 250486144 Z12.39 Adult heal th examination 338082568 Z00.00 Anxiety 01645858 F41.9 Asthma 559917642 J45.90 9 Leg length inequality 45 150016 M21.70 Smoker 49617903 F17.396 [id number] Vicente Sen MD [place] [address] [place] [address] 12/18/2024 12:19:52 12/18/2024 13:28:35 Asthma 148199640 J45.909 Chronic bronchitis 01061 004 J42 Allergic rhinitis 163676 04 J30.9 Hyperlipidemia 00505814 E78.5 Vitamin D deficiency 347 74653 E55.9 Leukocytosis 399128236 D 72.829 Essential hypertension 94132025 I10 Smoker 47690954 F17.544 [id number] Vicente Sen MD [address] [address] 12/29/2024 11:04:36 12/29/2024 11:07:17 Health Concerns Section Related Observation LastModified by Organization Detai ls LastModified Time None Recorded Concern Status LastModified by Organization Details LastModified Time None Recorded Advance Directives Directive None Recorded Payers Insurance Date Sequence Insurance Name Policy Number Policy Vick Covered Member ID Vick Member ID Guarantor Name 12/29/2024 1 [facility] (MEDICAID HMO) [id number] Apurva Marquez [id number] Apurva Marquez Notes Date Note Type Note Provider Name and Address Organization Details Recorded Time 09/12/2023 text/html Pt two wks s/p inject for PFitis, Rt foot an LLD Lt Bharath Olson DPM [address], [place], [address], [employer] 09/12/2023 11:17:43 10/03/2023 text/html Pt w/ lower extremity pain, Rt currently being tx'ed w/ trigger injections and CAM walker ambulation. Bharath Olson DPM [address], [place], [address], [employer] 10/03/2023 10:09:26 03/04/2024 text/html no changes EDWARD Alexis [address], [place], [address], [employer] 03/23/2024 11:22:18 12/18/2024 text/html wheezing , cough , no fever EDWARD Alexis [address], [place], [address], [employer] 01/02/2025 15:09:37 OBGyn Episode No OBEpisode recorded.
--- OUTSIDE RECORDS SUMMARY | 2025-03-13 15:12 | XMS_ITS | Data Portability ---
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 Patient will come back in a year unless there are new symptoms. [email or web address] Not available 04/03/2023 09:13:39 06/18/2024 06/18/2024 Annual gynecological exam performed. Patient will come back in a year unless there are new symptoms. [email or web address] Not available 06/09/2024 13:04:57 Plan of Treatment Reminders Order Date Submit Date Provider Last Modified By Organization Details Last Modified Time Details Appointments None recorded. Lab CT + NG + TV, RNA, unspecified specimen 2023 024 [facility] (Lab), [address], [place], [address], 4 14:53:58 test, urine 2022 023 [email or web address] [place], [address], [address], [place], [address], 3 15:29:34 Referral None recorded. Procedures None recorded. Surgeries None recorded. Imaging None recorded. Medication Orders progesteron e micronized 200 mg capsule 2022 023 [email or web address] [employer] [id number], [address], [place], [place], [id number], 4 09:34:18 Patient TargetsNo targets recorded. Patient InstructionsNo instructions recorded. Reason for Referral None Reported. 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 Shift in jose j sugge stive of bacte rial vagin osis. Elect justin bedoya ann marie d by Jarocho Ross ed, CT on 023 at 8:18 PM ----- ----- ----- ----- ----- ----- ----- ----- ----- ----- ----- ----- ----- ----- ----- ----- ----- ---- HPV RESUL TS: HPV mRNA E6/E7 : No HPV mRNA Detec yvette NOTE: This high risk HPV mRNA assay detec ts fourt een high- risk HPV types (16, 18, 31, 33, 35, 39, 45, 51, 52, 56, 58, 59, 66, 68) witho ut diffe renti ation . COMME NT: This speci men was revie wed by a Cytot echno logis t and/o r Patho logis t (as indic ated in this repor t) after evalu ation using the Thinp rep Imagi ng Syste m. CLINI PRINCE INFOR MATIO N: Menst rual Statu s: LMP (if appli cable ): Clini prince Histo ry/Pr eviou s Pap: Type of Neopl daniella (if appli cable ): Signi fican t Clini prince Findi ngs: Other Histo ry: Hormo yasmin (if appli cable ): PAP EDUCA ALEJANDRA L NOTE: The Pap Test is a scree damir test with an inher ent false negat sotero rate. Liqui d-bas ed sampl ing may decre ase, but will not elimi alexander, false negat sotero resul ts. A negat sotero resul t does not precl ude the prese nce and/o r devel opmen t of disea se, since the prese nce of abnor mal cells in the sampl e depen ds on the locat ion of the lesio n and sampl ing techn ique. Rhonda nued regul ar scree damir is the best metho d of cance r preve ntion . If repor yvette cytol ogic findi ng do not corre late with physi prince and/o r histo rical findi ngs, furth er inves tigat ion is recom jodee d, as clini juliana rowland nted. Not Available [facility] (Lab) [address], [place], [address], 04/05/2023 09:19:37 04/03/20 23 04/03/2023 CT/GC (DUSTIN) , THINP REP VIAL chlamydia trachomatis, PCR Negati ve negati ve Not Available [facility] (Lab) [address], [place], [address], 04/05/2023 09:19:38 04/03/20 23 04/03/2023 CT/GC (DUSTIN) , THINP REP VIAL neisseria gonorrhoeae, PCR Negati ve negati ve Not Available [facility] (Lab) [address], [place], [address], 04/05/2023 09:19:38 04/03/20 23 04/03/2023 TRICH OMONA S VAGIN GAMAL (RRNA ) trichomonas vaginalis ribosomal RNA (rrna) Negati ve negati ve Not Available [facility] (Lab) [address], [place], [address], 04/05/2023 09:19:38 07/03/20 23 07/03/2023 CT/GC AND TRICH OMONA S VAGIN GAMAL (RRNA ), URINE chlamydia trachomatis, PCR Negati ve negati ve Not Available [facility] (Lab) [address], [place], [address], 07/04/2023 14:02:13 07/03/20 23 07/03/2023 CT/GC AND TRICH OMONA S VAGIN GAMAL (RRNA ), URINE neisseria gonorrhoeae, PCR Negati ve negati ve Not Available [facility] (Lab) [address], [place], [address], 07/04/2023 14:02:13 07/03/2007/03/2023 CT/GC AND TRICH OMONA S VAGIN GAMAL (RRNA ), URINE trichomonas vaginalis ribosomal RNA (rrna) Negati ve negati ve Not Available [facility] (Lab) [address], [place], [address], 07/04/2023 14:02:13 07/03/20 23 07/03/2023 pregn carmita test, urine HCG negati ve Not Available [facility] [address], [place], [address], 07/03/2023 15:29:18 06/18/20 24 06/18/2024 CT/GC AND TRICH OMONA S VAGIN GAMAL (RRNA ), SWAB chlamydia trachomatis, PCR Negati ve negati ve Not Available [facility] (Lab) [address], [place], [address], 06/19/2024 14:53:58 06/18/20 24 06/18/2024 CT/GC AND TRICH OMONA S VAGIN GAMAL (RRNA ), SWAB neisseria gonorrhoeae, PCR Negati ve negati ve Not Available [facility] (Lab) [address], [place], [address], 06/19/2024 14:53:58 06/18/20 24 06/18/2024 CT/GC AND TRICH OMONA S VAGIN GAMAL (RRNA ), SWAB trichomonas vaginalis ribosomal RNA (rrna) Negati ve negati ve Not Available [facility] (Lab) [address], [place], [address], 06/19/2024 14:53:58 Result Notes None recorded. Procedures Surgical History Date Name Laterality Status Provider Name and Address Organization Details Recorded Time 07/03/20 23 IUD Insertion completed Austin Preciado MD [address], [place], [address], [facility] 07/03/2023 15:50:17 03/03/20 23 Date of Last Pap Smear completed Bre Diop [facility] 06/18/2024 09:34:42 06/07/20 21 HYSTEROSCOPY, SURGICAL, WITH BIOPSY OF ENDOMETRIUM AND/OR POLYPECTOMY (SURG) completed Bettye Garcia [facility] 06/08/2021 10:25:30 Imaging Results None recorded. Procedure Notes None recorded. Medical Equipment None Reported. Allergies No known drug allergies Medications Name Sig Start Date Stop Date Status Note LastModified by Organization Details LastModified Time amoxicillin 500 mg capsule TAKE 1 CAPSULE BY MOUTH THREE TIMES DAILY UNTIL GONE 04/03 completed Not Available Not Available Not Available Mirena 21 mcg/24 hr (up to 8 years) 52 mg intrauterin e device Take by intrauter ine route. 06/18 completed Not Available Not Available Not Available azithromyci n 250 mg tablet TAKE 2 TABLETS BY MOUTH TODAY THEN 1 TABLET BY MOUTH EVERY DAY FOR 4 DAYS 03/28 completed Not Available Not Available Not Available ibuprofen 800 mg tablet TAKE 1 TABLET BY MOUTH 2 HOURS BEFORE THE PROCEDURE 04/03 completed Not Available Not Available Not Available benzonatate 200 mg capsule TAKE 1 CAPSULE BY MOUTH THREE TIMES DAILY NEEDED FOR COUGH 06/18 completed Not Available Not Available Not Available hydrocodone 5 mg-acetamin ophen 325 mg tablet TAKE 1-2 TABLETS BY MOUTH EVERY 4 HOURS NEEDED FOR PAIN 04/03 completed Not Available Not Available Not Available ondansetron HCl 8 mg tablet TAKE 1 TABLET BY MOUTH 2 HOURS BEFORE THE PROCEDURE 04/03 completed Not Available Not Available Not Available prednisone 20 mg tablet TAKE 2 TABLETS BY MOUTH DAILY FOR 5 DAYS 04/03 completed Not Available Not Available Not Available phentermine 37.5 mg tablet TAKE 1 TABLET BY MOUTH EVERY DAY 06/18 completed Not Available Not Available Not Available sulfamethox azole 800 mg-trimetho prim 160 mg tablet TAKE 1 TABLET BY MOUTH TWICE DAILY 02/09 completed Not Available Not Available Not Available hydrocodone 10 mg-acetamin ophen 325 mg tablet TAKE 1 TABLET BY MOUTH 2 HOURS BEFORE PROCEDURE 04/03 completed Not Available Not Available Not Available tramadol 50 mg tablet 1 TABLET BY MOUTH THREE TIMES DAILY NEEDED 04/03 completed Not Available Not Available Not Available oxycodone-a cetaminophe n 5 mg-325 mg tablet TAKE 1 TABLET BY MOUTH EVERY 8 HOURS NEEDED 02/09 completed Not Available Not Available Not Available alprazolam 0.5 mg tablet TAKE 1 TABLET BY MOUTH 2 HOURS BEFORE PROCEDURE 04/03 completed Not Available Not Available Not Available benzonatate 100 mg capsule TAKE 1 CAPSULE BY MOUTH THREE TIMES DAILY NEEDED FOR COUGH 03/28 completed Not Available Not Available Not Available progesteron e micronized 200 mg capsule TAKE 1 CAPSULE BY MOUTH EVERY DAY 06/18 completed Not Available Not Available Not Available lisinopril 20 mg-hydrochl orothiazide 25 mg tablet TAKE 1 TABLET BY MOUTH EVERY DAY active Not Available Not Available No t Available montelukast 10 mg tablet TAKE 1 TABLET BY MOUTH AT BEDTIME 06/18 completed Not Available Not Available Not Available codeine 10 mg-guaifene sin 100 mg/5 mL oral liquid TAKE 10 ML BY MOUTH EVERY 8 HOURS NEEDED FOR COUGH 06/18 completed Not Available Not Available Not Available methylpredn isolone 4 mg tablets in a dose pack FOLLOW PACKAGE DIRECTION S 06/18 completed Not Available Not Available Not Available albuterol sulfate HFA 90 mcg/actuati on aerosol inhaler INHALE 2 PUFFS BY MOUTH EVERY 4 HOURS active Not Available Not Available No t Available loratadine 10 mg tablet TAKE 1 TABLET BY MOUTH DAILY 04/03 completed Not Available Not Available Not Available fluticasone propionate 110 mcg/actuati on HFA aerosol inhaler INHALE 1 PUFF BY MOUTH TWICE DAILY active Not Available Not Available No t Available progesteron e micronized 100 mg capsule TAKE 1 CAPSULE BY MOUTH EVERY DAY FOR 10 DAYS 02/09 completed Not Available Not Available Not Available rosuvastati n 20 mg tablet TAKE 1 TABLET BY MOUTH EVERY DAY FOR HIGH CHOLESTER OL active Not Available Not Available No t Available fenofibrate 160 mg tablet TAKE 1 TABLET BY MOUTH EVERY DAY FOR HIGH TRIGLYCER IDES active Not Available Not Available No t Available cholecalcif rosario (vitamin D3) 50 mcg (2,000 unit) capsule active Not Available Not Available Not Available Aerochamber Plus Flow-Vu,Lar ge Mask USE DIRECTED 04/03 completed Not Available Not Available Not Available Vitals Date Recorded Body height Body mass index (BMI) Body weight Systolic And Diastolic Provider Name and Address Organization Details Last Updated DateTime 04/03/2023 162.56 cm 48.2 kg/m2 229892.46 g 120/78 mm[Hg] Bernice Pritchett [facility] 04/03/2023 09:13:58 Date Recorded Body height Body mass index (BMI) Body weight Systolic And Diastolic Provider Name and Address Organization Details Last Updated DateTime 2023 162.56 cm 48.2 kg/m2 757143.46 g 122/77 mm[Hg] Maribel Mcgovern [facility] 2023 10:22:10 Date Recorded Body height Body mass index (BMI) Body weight Systolic And Diastolic Provider Name and Address Organization Details Last Updated DateTime 06/18/2024 162.56 cm 50.4 kg/m2 699135 g 120/78 mm[Hg] Bre Diop [facility] 06/18/2024 09:33:24 Date Recorded Body height Body mass index (BMI) Body weight Systolic And Diastolic Provider Name and Address Organization Details Last Updated DateTime 07/03/2023 162.56 cm 48.2 kg/m2 101399.46 g 121/78 mm[Hg] Maribel [facility] 07/03/2023 15:21:49 Date Recorded Body height Body mass index (BMI) Body weight Systolic And Diastolic Provider Name and Address Organization Details Last Updated DateTime 08/03/2023 162.56 cm 48.6 kg/m2 928347.64 g 121/76 mm[Hg] [facility] 08/03/2023 09:41:45 Social History Question Answer Notes LastModified by Organizat ion Details LastModified Time Tobacco Smoking Status Never [facility]oker [facility] 08/[facility]/2023 09:25:41 Do You Have An Advance Directive? No [email or web address] Information n ot available 02/14/2021 Are You Blind Or Do You Have Difficulty Seeing? No [email or web address] Information n ot available 02/14/2021 What Is Your Level Of Caffeine Consumption? Occasional [email or web address] Information not available 02/14/2021 How Much Tobacco Do You Chew? None Information not available 02/14/2021 In The 14 Days Before Symptom Onset, Have You Had Close Contact With A Laboratory-confirm ed COVID-19 While That Case Was Ill? No [email or web address] Information n ot available 02/14/2021 In The 14 Days Before Symptom Onset, Have You Had Close Contact With A Person Who Is Under Investigation For COVID-19 While That Person Was Ill? No [email or web address] Information not available 02/14/2021 Have You Been To An Area Known To Be High Risk For COVID-19? No [email or web address] Information not available 02/14/2021 Are You Deaf Or Do You Have Serious Difficulty Hearing? No [email or web address] Information not available 02/14/2021 What Type Of Diet Are You Following? REGULAR [email or web address] Information n ot available 02/14/2021 What Is The Highest Grade Or Level Of School You Have Completed Or The Highest Degree You Have Received? [id number] Information not available 02/14/2021 Are There Any Guns Present In Your Home? No [email or web address] Information not available 02/14/2021 Do You Use Protection During Sex? Always [email or web address] Information not available 02/14/2021 Do You Use Your Seat Belt Or Car Seat Routinely? Yes [email or web address] Information not available 02/14/2021 Do You Have Smoke And Carbon Monoxide Detectors In Your Home? Yes [email or web address] Information not available 02/14/2021 How Much Tobacco Do You Smoke? No [email or web address] Information not available 02/14/2021 Do You Use Sunscreen Routinely? No [email or web address] Information not available 02/14/2021 Have You Used IV Drugs? No [email or web address] Information not available 02/14/2021 Sex: Unknown Functional Status Question Answer Note LastModified by Organizat ion Details LastModified Time Do you use any illicit or recreational drugs? No [email or web address] Information not available 02/14/2021 What is your level of alcohol consumption? None [email or web address] Information not available 02/14/2021 Are you able to walk? 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 Occasional [email or web address] Information not available 02/14/2021 Mental Status Question Answer Note LastModified by Organization D etails LastModified Time Do you feel stressed (tense, restless, nervous, or anxious, or unable to sleep at night)? [id number] [email or web address] Information not available 02/14/2021 Family History Relationship Description Onset Age of this Age Resolved Age Notes LastModified by Organization Details LastModified Time Maternal Grandmother Malignant tumor of breast 78 [email or web address] Not available 2023 09:28:32 Maternal Grandmother Malignant tumor of breast [email or web address] Not available 2022 10:22:20 Maternal Grandmother Malignant tumor of breast [email or web address] Not available 2023 09:28:32 Mother Malignant neoplasm of ovary 32 [email or web address] Not available 2023 09:28:33 Mother Malignant neoplasm of ovary [email or web address] Not available 2022 10:22:20 Mother Malignant neoplasm of ovary [email or web address] Not available 2023 09:28:33 Father Heart disease [email or web address] Not available 2020 09:34:30 Father Heart disease [email or web address] Not available 2023 09:28:33 Medical History Condition Response Allergies (Food, seasonal, environmental ) N Other N Breast Cancer N Drug/Latex Allergies/Reactions N Blood Transfusion N Dermatologic Disorders N Lung Disease N Defects or Inherited Disease N Breast Problem N Gestational Diabetes N Hematologic disorders N Anesthesia Complications N History of STI N Deep Vein Thrombosis N Polycystic ovary syndrome N Anxiety Disorder N Autoimmune disease N Arthritis N Infertility N Polyps N Acid Reflux (GERD) N History of abnormal pap N Cancer N Stroke N Varicosities N Neurologic/Epilepsy N Endometriosis N High Cholesterol N Headaches N Fibromyalgia N Kidney Disease N Heart Problems N Kidney or Bladder Problems N Thyroid Problems N GI Problems N Eating Disorder N Anemia N Art (IVF or FET) N Psychiatric Illness N Ovarian Cancer N Diabetes N Pulmonary (TB, Asthma) N Hepatitis/Liver Disease N No Past Medical History Y Eczema N Urinary Tract Infection N Abuse/Domestic Violence N Asthma N Trauma/Violence N Depression/ depression N Heart Disease N Pre-Eclampsia N Hypertension N Osteoporosis N Thrombophilias N Gynecological History Statement/Question Response Date of Last Mammogram Flow Light Date of LMP 05/29/2024 N Was last menstrual period normal N STIs/STDs N IUD Desired Control Method IUD Abnormal Pap N On BCP's at Conception? N HPV Vaccine N Duration of Flow (days) 9 13 Current Control Method IUD Age at First Child 19 Are cycles usually normal Y Frequency of Cycle (Q days) 26 Sexually Active? Y Menses Monthly Y Age of first menstrual cycle 11 Date of Last Pap Smear 03/03/2023 Sexual Problems? N LMP Definite N Obstetrics History GPAL:G 2 P 1 0 1 1 Type Value Full Term 1 Spontaneous 1 Living 1 Total 2 Past Encounters Encounter ID Performer Location Encounter Start Date Encounter Closed Date Diagnosis/Indication Diagnosis SNOMED-CT Code Diagnosis ICD10 Code Diagnosis Note [id number] Kiki Brown CNM [facility] [address] [address] 02/14/2021 09:19:42 02/15/2021 15:55:29 Abnormal uterine bleeding 8220118078 9100 N93.9 Discussed possible causes of abnormal bleeding. This could be related to life situation or possibly the covid vaccine. It appears that the progestero ne has helped. I would like labs and u/s. If testing is normal and cycle does not normalize over the next month will need further evaluation . [id number] Austin Preciado MD [facility] [address],[place] [address] 02/14/2021 10:29:55 02/14/2021 11:14:23 Abnormal uterine bleeding 2390100840 9100 N93.9 [id number] Austin Preciado MD [facility] [address],[place] [address] 03/24/2021 09:18:06 03/24/2021 10:09:23 Cyst of right ovary [id number] 5142367 N83.291 [id number] Kiki Brown [facility] [address],[place] [address] 03/28/2021 09:45:50 03/28/2021 10:28:27 Abnormal uterine bleeding 6226797575 9100 N93.9 Discussed possible causes of abnormal bleeding. This could be related to life situation or possibly the covid vaccine. It appears that the progestero ne has helped. I would like labs and u/s. If testing is normal and cycle does not normalize over the next month will need further evaluation . [id number] Austin Preciado MD [place] [address],[place] [address] 03/28/2021 16:19:45 03/28/2021 17:59:56 Polyp of corpus uteri 55536980 N84.0 Abnormal u terine bleeding 6621301727 9100 N93.9 Cyst of ovary 68047829 N 83.209 This patient is a 35-year-ol d female presents for follow-up on ultrasound . Patient has a moderate size endometria l polyp. Patient has 2 complex ovarian cyst. We talked about different approaches to treatment and monitoring of these 2 problems. I strongly recommende d that she have the endometria l polyp removed. We agreed to perform this in the office. We agreed to follow-up on the ovarian cyst. She of ultrasound in 6-8 weeks. I spent more than 35 minutes with the patient discussing these 2 complex topics the ovarian cysts and the followup of the intrauteri ne cavity. The endometria l polyp lesion. We discussed etiology, natural history, risk, treatment, observatio n. [id number] MD Jessica Vogt [address],[facility] [place] [address] 04/19/2021 09:35:44 04/20/2021 09:45:33 Polycystic ovary syndrome [id number] E28.2 Cyst of ovary 97737830 N 83.209 Polyp of corpus uteri 11 914422 N84.0 this patient is a 35-year-ol d female with 2 complex ovarian cysts, and endometria l polyp. We reviewed these images today. We had previously talked about an office procedure for the polyp and observatio n of the cyst. The patient wants to do the Hysterosco py for the endometria l polyp in the hospital. I asked her to return to discuss the evaluation of the ovarian cyst if we are going to be in the operating room under anesthesia . She agreed that she would like to evaluate the ovarian cyst. We spent more than 25 minutes face-to-fa ce discussing various aspects of her care. We reviewed the ultrasound images together. We talked about ovarian cyst. Talked about the etiology and natural history and treatment. We also talked about endometria l lesions. We talked about risk of the surgery. We talked about the procedure in detail how the laparoscop ic approach the surgery was performed. We talked about her irregular bleeding. We talked about polycystic ovarian syndrome and anovulator y bleeding. We agreed to obtain labs. We will proceed with the surgery. She will return for the informed consent process. [id number] Austin Preciado MD [place] [address] [address] 05/31/2021 09:36:17 05/31/2021 18:00:35 [id number] MD Jessica Vogt [address],[facility] [place] [address] 06/01/2021 18:01:46 06/02/2021 12:17:54 Cyst of ovary 32909202 N83.209 Polyp of corpus uteri 11 481616 N84.0 this patient is a 35-year-ol d female who presents for preoperati ve care. She has an ovarian cyst and endometria l polyp. We have agreed to perform laparoscop ic ovarian cystectomy and the hysterosco py D&C with possible polypectom y. She understand s the risk, benefits, and alternativ es. She has completed the informed consent process and is ready to proceed. [id number] Austin Preciado MD [place] [address],[place] [address] 06/08/2021 09:34:35 06/08/2021 09:42:14 [id number] Austin Preciado MD [place] [address],[place] [address] 07/13/2021 18:04:22 07/14/2021 12:55:50 Postoperative care [id number] Z48.89 this patient is a 36-year-ol d female who presents for postoperat sotero care. She is 1 week to 2 weeks postop from laparoscop ic Surgery. she is recovering normally. Her incisions are clean dry and intact. She has no complaints . We discussed the surgery. We discussed the findings on the surgery. We agreed to follow-up as needed. [id number] [facility] [address] [address] 04/03/2023 09:03:24 04/03/2023 11:30:41 Gynecologic examination 23642591 Z01.419 Take Calcium with Vitamin D 1200mg daily if not receiving in daily diet. It is strongly advised to have an annual flu shot and up can obtain at most pharmacies . If you have not had a TDap shot in the last 10 years you should obtain one as well. Discussed with patient & provided with informatio n regarding Gardisil vaccine to prevent the 4 strains for HPV that cause cervical cancer if under age 26. Encourage safe sexual practices, to use condoms and limit partners if not already in a monogamous relationsh ip. Do monthly self breast exams. Have mammogram yearly or every other year depending on family history. BRCA testing is now available for patients with strong genetic history of female cancer. If interested contact the office. Engage in daily exercise of low impact aerobic exercise 45-60 minutes 4-5 times weekly. Avoid tobacco and illicit drugs as well as using moderation with alcohol intake less than 1-2 8 oz beverages daily. This lifestyle behavior pattern will lead to less health conditions and longer life span. If BMI greater than 25 weight watchers or dietary consult advised. Patient received above instructio ns, and questions have been answered. If you have any questions please call or respond to this email. Patient was made aware of the patient portal and may obtain a paper copy of today's plan if desired. Pap/hpv sentSTD Screen declinedGe netic Screen discussedC olon Screen PCPDexa Screen naRoutine Labs PCPMammo next year age 38yo Abnormal u terine bleeding [id number] 9100 N93.9 RF Prometrium sentWill continue as previously instructed by Dr. Preciado [id number] Austin Preciado MD [facility] [address],[place] [address] 2023 09:51:27 2023 10:53:25 Contraception care management [id number] Z30.9 This patient is a 38-year-ol d female presents for consultati on for sterilizat ion. She has considered Mirena also. We talked about Mirena. Talked about sterilizat ion. She would like to proceed with Mirena insertion. We spent 20 minutes face-to-fa ce. More than 50% was counseling . She will return for Mirena insertion. [id number] Austin Preciado MD [facility] [address],[place] [address] 07/03/2023 14:41:30 07/03/2023 16:11:42 Contraception care management [id number] Z30.9 IUD inserted without complicati ons, there was ultrasound confirmati on of the placement after the insertion. [id number] Austin Preciado MD [facility] [address],[facility] [place] [address] 08/03/2023 09:25:33 08/03/2023 10:19:59 Contraception care management [id number] Z30.9 38-year-ol d female presents for IUD check. IUD could not be visualized on pelvic exam. Pelvic ultrasound is quickly performed and the IUD appeared to be normally placed. She will follow-up in 1 year for annual exam. [id number] Austin Preciado MD [facility] [address] [address] 06/18/2024 09:26:16 06/18/2024 10:09:22 Gynecologic examination [id number] Z01.419 Annual gynecologi prince exam performed. Patient will come back in a year unless there are new symptoms. Suggest Calcium with Vitamin D if not eating in diet. Patient advised to get annual flu shot. Recommend yearly physicals and perform monthly breast exams. Genetic testing is available for patients with family history of cancer. Engage in safe sexual practices, use condoms. Encouraged to have daily exercise. Avoid tobacco and illicit drugs, moderation of alcohol. If BMI greater than 25 dietary consult advised. If you have any questions please call or email. mammogram- already has order from PCP and is scheduled in September at [facility] colon cancer screening - n/a DEXA scan- n/a Pap smear- UTD 2022 WNL, will repeat in 2025 per ASCCP guidelines . laboratory evaluation - PCP Contracept ion care management [id number] Z30.9 Patient doing well with Mirena IUD. Patient aware that IUD expires in 2030. Venereal d isease screening [id number] Z11.3 Pt requested STI testing for GC/CT/tric h.Discusse d the various types of STDs, related symptoms and the potential consequenc es (including effects on fertility) of STD infections . Reviewed ways to limit exposure and prevention techniques . Health Concerns Section Related Observation LastModified by Organization Detai ls LastModified Time None Recorded Concern Status LastModified by Organization Details LastModified Time None Recorded Advance Directives Directive N: Payers Insurance Date Sequence Insurance Name Policy Number Policy Vick Covered Member ID Vick Member ID Guarantor Name 06/18/2024 1 *SELF PAY* Me fuentes Marquez 06/18/2024 1 [facility] (MEDICAID HMO) [id number] Apurva Marquez [id number] Apurva Marquez Notes Date Note Type Note Provider Name and Address Organization Details Recorded Time 04/03/2023 text/html Annual GYNReport ed bypatient.History: no gynecologic complaints Menstrual cycle:Normal menses Urinary symptoms:No hematuria; No incontinence Vulva:No genital lesion Vagina:Normal vaginal discharge Breast:No breast pain; No breast lump; No nipple discharge Current Contraception:Cond oms Sexual complaints:No sexual complaints; No pain during intercourse; Normal libido Menopausal Symptoms:No menopausal symptoms; Normal vaginal lubrication Psychological symptoms:No depression; No anxiety; No PMDD Preventive measures:Encourage self breast examination; Encourage regular exercise; Encourage no tobacco use; Encourage regular mammograms starting age 40; Followed with yearly pap smears Aretha [facility] [address], [place], [address], [facility] 04/03/2023 11:22:04 2023 text/html This patient is a 38-year-old female presents for consultation for sterilization. She has considered Mirena also. We talked about Mirena. Talked about sterilization. She would like to proceed with Mirena insertion. We spent 20 minutes [id number]-[id number]. More than 50% was counseling. She will return for Mirena insertion. Austin Preciado MD [address], [place], [address], [facility] 2023 10:52:57 07/03/2023 text/html Patient presents for IUD insertion. Austin Preciado MD [address], [place], [address], [facility] 07/03/2023 16:06:52 08/03/2023 text/html 38-year-old danelle main presents for IUD check. IUD could not be visualized on pelvic exam. Pelvic ultrasound is quickly performed and the IUD appeared to be normally placed. She will follow-up in 1 year for annual exam. Austin Preciado MD [address], [place], [address], [facility] 08/03/2023 10:18:28 06/18/2024 text/html Annual GYNReport ed bypatient.History: no gynecologic complaints Menstrual cycle:Normal menses Urinary symptoms:No hematuria; No incontinence Vulva:No genital lesion Vagina:Normal vaginal discharge Breast:No breast pain; No breast lump; No nipple discharge Current Contraception:Sati sfied with current contraception; Intrauterine device (iud) Sexual complaints:No sexual complaints; No pain during intercourse; Normal libido Menopausal Symptoms:No menopausal symptoms; Normal vaginal lubrication Psychological symptoms:No depression; No anxiety; No PMDD Preventive measures:Encourage self breast examination; Encourage regular exercise; Encourage no tobacco use; Encourage regular mammograms starting age 40 Patient presents for annual well woman exam. Patient denies concerns today. Pt doing well with IUD. Patient requests STI testing, denies symptoms. JEREMIAH JACOBS, EDYTA [address], [place], [address], [facility] 06/18/2024 10:09:00 OBGyn Episode Ob Episode Information Episode Created Date Number of Fetuses Patient Bloodtype Patient rh Status Prepregnancy Weight lbs Domestic Partner Domestic Partner Phone Father Name Crime Lab Technician Status 02/10/20 21 1 CLOSED Fetus Data First Name Last Name Admitted to NICU Weight (g) Sex Living Outcome Pediatric Complications Fetus ID Race Codes Race Delivery Type , Induced [id number] Richard Calculation Initial Richard Date Initial Exam Date Initial Exam Provider Initial Ultrasound Date Last Menstrual Period Date Ultra Sound Weeks Gestation 0 Eighteen To Twenty Week Richard Update Ultra Sound Date Fundal Height At Umbil Quickening Date Ultra Sound Latest Weeks Gestation Final Richard Confirmed By Final Richard Confirmed Date Final Richard Date Ultra Sound Latest Days Gestation 0 0 Menstrual History Last Menstrual Date Menses Monthly On Bcp Conception Prior Menses Frequency Hcg Plus Date Menarche Onset Age Delivery Information Delivery Date Delivery Type Labor Anesthesia Weeks Gestation Incision Type Labor Labor Length Hrs Delivered By Post Complications Tubal Sterilization Discharge Date Comments 7 Discharge Information Feeding Method Contraceptive Method Maternal HG B and HCT Levels Ob Episode Information Episode Created Date Number of Fetuses Patient Bloodtype Patient rh Status Prepregnancy Weight lbs Domestic Partner Domestic Partner Phone Father Name Crime Lab Technician Status 02/10/20 21 1 CLOSED Fetus Data First Name Last Name Admitted to NICU Weight (g) Sex Living Outcome Pediatric Complications Fetus ID Race Codes Race Delivery Type [id number] Full Term [id number] Primary Richard Calculation Initial Richard Date Initial Exam Date Initial Exam Provider Initial Ultrasound Date Last Menstrual Period Date Ultra Sound Weeks Gestation 0 Eighteen To Twenty Week Richard Update Ultra Sound Date Fundal Height At Umbil Quickening Date Ultra Sound Latest Weeks Gestation Final Richard Confirmed By Final Richard Confirmed Date Final Richard Date Ultra Sound Latest Days Gestation 0 0 Menstrual History Last Menstrual Date Menses Monthly On Bcp Conception Prior Menses Frequency Hcg Plus Date Menarche Onset Age Delivery Information Delivery Date Delivery Type Labor Anesthesia Weeks Gestation Incision Type Labor Labor Length Hrs Delivered By Post Complications Tubal Sterilization Discharge Date Comments 5 39 Discharge Information Feeding Method Contraceptive Method Maternal HG B and HCT Levels
--- OUTSIDE RECORDS SUMMARY | 2025-03-13 15:12 | XMS_ITS | Clinical Summary ---
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 Gender Identity Not on file Sexual Orientation Not on file Plan of Treatment Health Maintenance Due Date Last Done Comments Hepatitis C Virus (HCV) Screening 1983 TdaP Immunization 1983 Pap Smear 2004 Cervical Cancer Screening (CCS) 2013 HPV/Cotest 2013 Discussion re Starting/Frequency of Mammograms 2023 Influenza Immunization (#1) 2024 SARS-COV-2 Immunization ( season) 2024 11/11/2020 Respiratory Syncytial Virus (RSV) Immunization (Adult) (1 - 1-dose 75+ series) 2058 Hepatitis B Immunization Completed 017, 04/09/2017, 12/13/2014 Meningococcal Immunization (ACWY) Aged Out No longer eligible b ased on patient's age to complete this topic Pneumococcal Immunization Combined Aged Out No longer eligible b ased on patient's age to complete this topic Rotavirus Immunization Aged Out No lo nger eligible based on patient's age to complete this topic
== END 2025-03-13 15:07 | disposition home or self-care (01) ==
LOC: ANHIMG 15:10
PROVIDERS: Visit Provider Physician Assistant
DX: Z12.31 Encounter for screening mammogram for malignant neoplasm of breast (principal)
CPT/HCPCS: 77063; 77067